=== PATIENT | female | born 1975 | race Caucasian/White ===

== ENCOUNTER 2020-01-24 09:24 | Emergency (ER) | payer SELFPAY ==
[2020-01-24 09:28] VITALS: BP 125/67; PULSE 68; RESP 16; TEMP 37; O2SAT 95
--- NOTE | 2020-01-24 09:45 | DI.RAD_ITS ---
EXAM: XR SHOULDER LT COMPLETE 2+V CLINICAL HISTORY: pain x 2 day, lateral aspect. TECHNIQUE: 2D digital imaging was performed. COMPARISON: No exams were available for comparison FINDINGS: BONES: No acute fracture is present. No bony destructive lesion is seen. JOINTS: No dislocation present. There is minimal spurring at the glenoid and minimal inferior spurrin g at the AC joint. SOFT TISSUE: A tiny rounded calcification is seen near the greater tuberosity. IMPRESSION: Mild degenerative changes and calcific tendinosis.. DATA REPOSITORY: RADIATION DOSE DELIVERED:
--- NOTE | 2020-01-24 09:49 | W.ED.GENAD ---
Discharge Plan Disposition Patient Disposition: HOME Discharge Details Chief Complaint: Orthopedic Clinical Impression: Calcific tendinitis of left shoulder Primary Care Provider: None,None ED Provider: Heriberto Ballesteros Home Meds and New Rx's Prescriptions: Continued ipratropium-albuterol 3 ML solution for nebulization 3 ml Inhalation QID PRNQty: 30 RF: 5 (DME) nebulizers [Compact Compressor Nebulizer] 1 EACH kit 1 ea Miscellaneous Q4H PRN Qty: 1 RF: 0 triamcinolone acetonide 15 GM cream 15 gm Topical BID Qty: 1 RF: 0 albuterol sulfate [ProAir HFA] 90 mcg/actuation HFA aerosol inhaler 2 puff Inhalation Q6H PRN Qty: 1 RF: 5 Discharge Instructions Instructions: Tendinitis (ED) Additional Instructions: Wear sling as needed, advance activity as tolerated. [id number] Motrin as directed. Cool and/or warm compresses every 2 hours for 20 minutes. Be sure to do passive range of motion like we discussed at least 4 times daily to avoid a frozen shoulder. Please watch for new or worsening symptoms and return to the ER for any concerns. I have given you the name and number of our local orthopedic team, I recommend contacting their office for prompt outpatient reevaluation in the next week or 2 if symptoms are not improving with conservative therapy Referrals: Evan Terry MD [ [facility] STAFF PHYSICIAN] - Discharge Data Discharge Date/Time-TO BE ENTERED AT DEPARTURE: 01/24/20 11:03 Medical Decision Making <ROMULO Kim - Last Filed: 01/24/20 10:49> 44-year-old female presents with 2-day history of worsening left shoulder pain, nonradiating. She is right-hand dominant. Examination reveals point tenderness over the lateral aspect of the shoulder, concerning for potential bursitis or tendinitis. No evidence of septic joint. Given this is atraumatic, low suspicion for bony abnormality. Discussed options, patient comfortable with the pending x-ray now X-ray obtained, no acute bony abnormality. Findings consistent with a calcific tendinitis Discussed x-ray findings with patient. Sling applied. We discussed passive range of motion to avoid a frozen shoulder, anti-inflammatory therapy [id number], cool and/or warm compresses as tolerated, and outpatient orthopedic follow-up. Patient comfortable this plan has no additional questions or concerns Case discussed with Dr. Cohen who evaluated the patient himself. Please see his note Medical Records Medical records reviewed: Yes I reviewed the patient's medical records. Imaging Data Radiologic Study: Attestation: I personally reviewed and interpreted this imaging study as follows: Imaging: X-Ray Radiologist's impression: Mild degenerative changes and calcific tendinosis <Maxime Cohen MD - Last Filed: 01/25/20 19:07> Patient seen, examined, and discussed with ROMULO Ballesteros. I agree with treatment plan as discussed/documented. HPI <ROMULO Kim - Last Filed: 01/24/20 10:49> General Mode of arrival: ambulatory. Date/Time Provider Initiated Documentation: 01/24/20 09:25. Limitations to Documentation: no limitations. Information obtained by: patient. HPI Narrative: This is a 44-year-old female who is right-hand dominant, history of GERD, hyperlipidemia, asthma, current smoker, presenting with 2-day worsening left shoulder pain. She reports the pain is moderate at rest, severe with movement. She reports that the pain began yesterday morning upon waking however has progressively gotten worse. She denies any numbness, tingling, weakness. She denies any chest pain, productive cough, back pain. Reports mild dry baseline cough secondary to smoking and asthma but unchanged. She denies any obvious trauma 2 days ago, admits to folding laundry but nothing out of the ordinary. Denies any history of shoulder issues. She has taken Tylenol with out relief.. Denies any pain or swelling in her legs. Of note, she did return from [place] little over 2 weeks ago, did self quarantining, was tested for COVID both pre-and post move, both negative. Related Data Home Medications Medication Instructions Recorded Confirmed ipratropium-albuterol 3 ml INHALATION QID PRN #30 amp 12/26/15 01/24/20 nebulizers [Compact Compressor #1 kit 12/26/15 Nebulizer] triamcinolone acetonide 15 gm TOPICAL BID #1 script 01/04/18 01/24/20 albuterol sulfate 90 mcg/actuation 2 puff INHALATION Q6H PRN #1 ea 12/19/18 01/24/20 aerosol inhaler Previous Rx's Medication Instructions Recorded triamcinolone acetonide 15 gm TOPICAL BID #1 script 01/04/18 albuterol sulfate 90 mcg/actuation 2 puff INHALATION Q6H PRN #1 ea 12/19/18 aerosol inhaler Allergies Allergy/AdvReac Type Severity Reaction Status Date / Time Sulfa (Sulfonamide Allergy Intermediate HIVES Unverified 01/24/20 09:40 Antibiotics) tramadol AdvReac Severe DIARRHEA Unverified 01/24/20 09:40 indomethacin AdvReac Intermediate vomiting/di Unverified 01/24/20 09:40 arrhea morphine AdvReac Mild LOCAL Unverified 01/24/20 09:40 ITCHING General Stated Complaint: Orthopedic GAUTAM: 4 Review of Systems <ROMULO Kim - Last Filed: 01/24/20 10:49> Constitutional Constitutional: Denies fever(s) and Denies weakness Cardiovascular Cardiovascular: Denies chest pain and Denies dyspnea Respiratory Respiratory: Reports cough (Baseline) and Denies dyspnea Gastrointestinal Gastrointestinal: Denies abdominal pain, Denies nausea and Denies vomiting Musculoskeletal Musculoskeletal: Denies back pain, Denies numbness and Denies tingling Integumentary/Breasts Skin/Breast: Denies rash Neurologic Neurologic: Denies numbness, Denies tingling and Denies weakness PFS <ROMULO Kim - Last Filed: 01/24/20 10:49> Medical History Atopic dermatitis (Inactive 11/11/17) Cigarette smoker (Chronic) Dysfunctional uterine bleeding (Resolved 07/28/98) S/p JADEN and bilateral oophrectomy Dysplasia of cervix (Resolved 07/28/95) BRUCE 3; S/P LEEP; CONE GERD (gastroesophageal reflux disease) (Resolved) Hyperlipidemia (Chronic) Moderate persistent asthma (Chronic) Surgical History Appendectomy History of appendectomy (Inactive) History of left oophorectomy (Inactive) History of right oophorectomy (Inactive) Hysterectomy, Laproscopic Knee Surgery Oophrectomy, Left (~2004) ovarian cysts Oophrectomy, Right (~1998) Status post laparoscopic hysterectomy (Inactive) Family History Mother Essential hypertension DVT (deep venous thrombosis) Heart disease Asthma Family history Diabetes Father Asthma Grandfather Essential hypertension Neoplasm PROSTATE Grandmother Essential hypertension Heart disease Neoplasm BREAST Sister No problems noted. Daughter Asthma Other Depression Social History Smoking/Tobacco Use Status: Current every day Alcohol Intake: never Drug use: Never Do you feel safe at home: Yes Do you feel safe in your relationship?: Yes Exam <ROMULO Kim - Last Filed: 01/24/20 10:49> Const General: cooperative, healthy appearing, comfortable and no acute distress Orientation: alert, awake and oriented x3 HENMT Head: normal to inspection, normocephalic and atraumatic Mouth: moist mucous membranes Eyes Conjunctivae: conjunctivae normal Neck Neck: normal visual inspection, full ROM, trachea midline, supple and nontender Resp Effort & Inspection: normal respiratory effort and able to speak in complete sentences Auscultation: clear to auscultation bilaterally Cardio Rate: regular rate Rhythm: regular rhythm Back/Spine/Pelvis Back: No back tenderness Skin General skin exam: no rashes or lesions noted Neuro General: patient alert, patient awake, moves all extremities and no focal motor deficits Motor: muscle tone normal throughout Sensory Exam: no sensory deficits noted Extrem Left upper extremity: normal to inspection and shoulder/upper arm Details: inspection abnormal, tenderness Location: over the deltoid bursa, axillary nerve sensory function normal and abnormal ROM Details: held in an abnormal fashion Details: in ADduction, pain with active ROM and pain with passive ROM; no swelling and no unsual warmth Psych Appearance: grossly normal Mental Status: mental status grossly normal Course <ROMULO Kim - Last Filed: 01/24/20 10:49> Vital Signs Vital signs: Vital Signs Temperature 37.0 C 01/24/20 09:28 Pulse 68 01/24/20 09:28 Respiratory Rate 16 01/24/20 09:28 Blood Pressure 125/67 01/24/20 09:28 Pulse Oximetry 95 01/24/20 09:28 Temperature 37.0 C 01/24/20 09:28 Temperature Source Skin 01/24/20 09:28 Pulse 68 01/24/20 09:28 Respiratory Rate 16 01/24/20 09:28 Respiratory Effort 01/24/20 09:38 Blood Pressure 125/67 01/24/20 09:28 Blood Pressure Position Sitting 01/24/20 09:28 Pulse Oximetry 95 01/24/20 09:28 Oxygen Delivery Method Room Air 01/24/20 09:28 Oxygen Flow Rate 0 01/24/20 09:28 Pain Level 10 01/24/20 09:28
== END 2020-01-24 11:03 | disposition home or self-care (01) ==
PROVIDERS: Emergency Provider Physician Assistant
DX: M75.32 Calcific tendinitis of left shoulder (principal)
CPT/HCPCS: 99283; 73030; L3650

== ENCOUNTER 2020-02-15 07:10 | Emergency (ER) | payer SELFPAY ==
[2020-02-15 07:15] VITALS: BP 130/67; PULSE 118; RESP 20; TEMP 37.3; O2SAT 98
[2020-02-15 07:28] LABS: Bilirubin Negative (Negative); Blood Moderate (Negative); Clarity Sl Cloudy (Clear); Glucose Negative (Negative); Ketones Negative (Negative); Leukocyte Esterase Trace (Negative); Nitrite Negative (Negative); Urobilinogen 0.2 EU/dL (Up TO 0.2); pH 6.5 (5-8)
--- NOTE | 2020-02-15 07:34 | W.ED.GENAD ---
Discharge Plan Disposition Patient Disposition: HOME Condition: Stable Discharge Details Chief Complaint: Fever Clinical Impression: Pyelonephritis Primary Care Provider: None,None ED Provider: Ethan Kim Home Meds and New Rx's Prescriptions: New cephalexin 500 mg tablet 500 mg PO QID Qty: 28 RF: 0 ondansetron 4 mg tablet,disintegrating 4 mg PO Q8H PRN (Reason: nausea and vomiting) Qty: 30 RF: 0 oxycodone 5 mg tablet 5 mg PO Q6H PRN (Reason: pain) Qty: 12 RF: 0 Continued ipratropium-albuterol 3 ML solution for nebulization 3 ml Inhalation QID PRNQty: 30 RF: 5 (DME) Compact Compressor Nebulizer 1 EACH kit 1 ea Miscellaneous Q4H PRN Qty: 1 RF: 0 triamcinolone acetonide 15 GM cream 15 gm Topical BID Qty: 1 RF: 0 albuterol sulfate [ProAir HFA] 90 mcg/actuation HFA aerosol inhaler 2 puff Inhalation Q6H PRN Qty: 1 RF: 5 Discharge Instructions Instructions: Kidney Infection (ED) Additional Instructions: you can take 1000mg tylenol and 600mg ibuprofen every 6 hours for pain as needed if you need more pain medicine take 1 oxycodone do not drink alcohol or drive if you take this medicine if you feel more ill, have persistent vomit or new symptoms such as difficulty breathing return to the emergency department Discharge Data Discharge Date/Time-TO BE ENTERED AT DEPARTURE: 02/15/20 09:46 Medical Decision Making <Jc Samaniego MD - Last Filed: 02/19/20 20:34> Patient presenting with complaint of bilateral flank pain with associated urinary symptoms, fever and now nausea/vomiting. Previous history of kidney infections but not kidney stones. Looks uncomfortable but nontoxic. Not febrile here but tachycardic. IV established and fluids, Toradol, Zofran ordered. Urinalysis and blood work ordered. Stone study ordered because she looks so uncomfortable and urine getting positive for blood but only trace leuks. Ceftriaxone ordered. <Ethan Kim MD - Last Filed: 02/15/20 08:59> Labs show wbc of 18 and UA consistent with uti/pyelo otherwise stable labs and she remains hd stable feels much better and is tolerating PO. CT shows no obstructing kidney stone per Dr. horner. She is stable and would like to try outpatient management. Will d/c on cephalexin. Return precautions given . Will also place on follow uplist to see a pcp within a week Differential Diagnosis Differential Diagnosis: kidney stone, pyelo, uti Imaging Data Radiologic Study: Attestation: I personally reviewed and interpreted this imaging study as follows: Imaging: CT Scan Radiologist's impression: left hydro with stranding, no obstructing kidney stones per Dr. horner Lab Data Lab results reviewed: Yes I reviewed the patient's lab results. HPI <Jc Samaniego MD - Last Filed: 02/19/20 20:34> General Mode of arrival: ambulatory. Date/Time Provider Initiated Documentation: 02/15/20 07:14. Limitations to Documentation: no limitations. Information obtained by: patient and RN notes reviewed. HPI Narrative: Patient presents to the ED with bilateral flank/back pain, urinary symptoms, fever that started a little over 24 hours ago. She now has nausea and vomiting. She has had kidney infections previously. She has not had kidney stones. She denies chest pain, cough, shortness of breath. She denies abdominal pain. She has been admitted once in the past for kidney infection. She is quite uncomfortable and presents now for evaluation. Related Data Home Medications Medication Instructions Recorded Confirmed Compact Compressor Nebulizer #1 kit 12/26/15 02/15/20 ipratropium-albuterol 3 ml INHALATION QID PRN #30 amp 12/26/15 02/15/20 triamcinolone acetonide 15 gm TOPICAL BID #1 script 01/04/18 02/15/20 albuterol sulfate 90 mcg/actuation 2 puff INHALATION Q6H PRN #1 ea 12/19/18 02/15/20 aerosol inhaler cephalexin 500 mg PO QID #28 tab 02/15/20 ondansetron 4 mg PO Q8H PRN #30 tab 02/15/20 oxycodone 5 mg PO Q6H PRN #12 tab 02/15/20 Previous Rx's Medication Instructions Recorded triamcinolone acetonide 15 gm TOPICAL BID #1 script 01/04/18 albuterol sulfate 90 mcg/actuation 2 puff INHALATION Q6H PRN #1 ea 12/19/18 aerosol inhaler cephalexin 500 mg PO QID #28 tab 02/15/20 ondansetron 4 mg PO Q8H PRN #30 tab 02/15/20 oxycodone 5 mg PO Q6H PRN #12 tab 02/15/20 Allergies Allergy/AdvReac Type Severity Reaction Status Date / Time Sulfa (Sulfonamide Allergy Intermediate HIVES Unverified 02/15/20 07:36 Antibiotics) tramadol AdvReac Severe DIARRHEA Unverified 02/15/20 07:36 indomethacin AdvReac Intermediate vomiting/di Unverified 02/15/20 07:36 arrhea morphine AdvReac Mild LOCAL Unverified 02/15/20 07:36 ITCHING General Stated Complaint: Fever GAUTAM: 3 Review of Systems <Jc Samaniego MD - Last Filed: 02/19/20 20:34> Narrative: 06/11 Review of Systems completed and is negative except as stated above in HPI (Systems reviewed: Const, Eyes, ENT, Resp, CV, GI, , MSK, Skin, Neuro) PFSH <Jc Samaniego MD - Last Filed: 02/19/20 20:34> Medical History (Updated 02/15/20 @ 08:56 by Ethan Kim MD) Atopic dermatitis (Inactive 11/11/17) Cigarette smoker (Chronic) Dysfunctional uterine bleeding (Resolved 07/28/98) S/p JADEN and bilateral oophrectomy Dysplasia of cervix (Resolved 07/28/95) BRUCE 3; S/P LEEP; CONE GERD (gastroesophageal reflux disease) (Resolved) Hyperlipidemia (Chronic) Moderate persistent asthma (Chronic) Surgical History History of appendectomy (Inactive) History of left oophorectomy (Inactive) History of right oophorectomy (Inactive) Knee Surgery Status post laparoscopic hysterectomy (Inactive) Social History Smoking/Tobacco Use Status: Current every day Alcohol Intake: never Drug use: Never Do you feel safe at home: Yes Do you feel safe in your relationship?: Yes Exam <Jc Samaniego MD - Last Filed: 02/19/20 20:34> Narrative Exam Narrative: Vitals: Afebrile here. Tachycardic. Normal blood pressure and room air pulse ox. Const: Obese female appears uncomfortable. HEENT: NC/AT. Normal facial exam. Eyes: Normal conjunctiva and sclera. Neck: Supple. Trachea midline. Lungs: Normal respiratory effort. Cor: Good radial pulses. GI: Soft. NT/ND. No guarding or rebound. Back: B CVAT Neuro: A+O x 3. Normal speech, mentation, gait. Cranial nerves II - XII grossly intact. No gross motor or sensory deficit. Ext: No C/C/E. Skin: Warm and dry without rash. Course <Jc Samaniego MD - Last Filed: 02/19/20 20:34> Vital Signs Vital signs: Vital Signs Temperature 99.1 F 02/15/20 07:15 Pulse 118 H 02/15/20 07:15 Respiratory Rate 20 02/15/20 07:15 Blood Pressure 130/67 02/15/20 07:15 Pulse Oximetry 98 02/15/20 07:15 Temperature 99.1 F 02/15/20 07:15 Temperature Source Skin 02/15/20 07:15 Pulse 118 H 02/15/20 07:15 Respiratory Rate 20 02/15/20 07:15 Blood Pressure 130/67 02/15/20 07:15 Blood Pressure Position Sitting 02/15/20 07:15 Pulse Oximetry 98 02/15/20 07:15 Oxygen Delivery Method Room Air 02/15/20 07:15 Oxygen Flow Rate 0 02/15/20 07:15 Pain Level 9 02/15/20 07:15 Comment 02/15/20 07:15 Lab/Test Results Lab/Test Results: Laboratory Tests Range/Units 02/15/20 07:20 Urine Color (Yellow) Yellow Urine Clarity (Clear) Sl cloudy Urine pH (5-8) 6.5 Ur Specific [place] (1.005-1.025) 1.020 Urine Protein (Negative) mg/dL 100 H Urine Ketones (Negative) mg/dL Negative Urine Blood (Negative) Moderate H Urine Nitrite (Negative) Negative Urine Bilirubin (Negative) Negative Urine Urobilinogen (Up TO 0.2) EU/dL 0.2 Ur Leukocyte Esterase (Negative) Trace H Urine Glucose (Negative) mg/dL Negative Sign Out <Jc Samaniego MD - Last Filed: 02/19/20 20:34> Sign Out Data: Sign Out Comment: Pending labs and CT scan, reevaluation after fluids and medications Last updated by Jc Samaniego MD at 02/15/20 07:46
[2020-02-15 07:37] LABS: Lactate 0.9 mmol/L (0.6-1.4)
[2020-02-15 07:38] LABS: Abs Immature Grans 0.04 k/cumm (0.0-0.09); Absolute Basophil Count 0.04 k/cumm (0.0-0.2); Absolute Eosinophil Count 0.04 k/cumm (0.0-0.7); Absolute Lymphocyte Count 1.81 k/cumm (1.2-3.4); Basophils % 0.2; Eosinophils % 0.2; HGB 15.2 g/dL (12.0-15.5); Immature Grans % 0.2 %; Lymphocytes % 9.9; Mean Corp. HGB Concentration 33.8 g/dL (32.0-36.0); Mean Corpuscular Hemoglobin 30.5 pg (27.0-33.0); Mean Corpuscular Volume 90.2 fL (80-95); Mean Platelet Volume 11.6 fL (8.0-11.0); Monocytes % 5.5; Platelet Count 172 x1000/uL (130-400); RBC 4.99 m/cumm (4.00-5.20); RBC Distribution Width 13.6 % (11.7-14.6); White Blood Cell Count 18.26 k/cumm (4.4-10.8)
[2020-02-15 07:40] LABS: Bacteria Moderate HPF (Negative); C & S Indicated? No/Sq. Contamination; Casts Negative LPF (Negative); Crystals Negative HPF (Negative); Epithelial Cells Many HPF (Negative); Mucus Moderate (Negative)
[2020-02-15 07:42] LABS: Absolute Neutrophil Count 15.34 k/cumm (1.2-6.7)
[2020-02-15] MEDS: Ondansetron 4 MG/2 ML VIAL IVP (07:43)
[2020-02-15] MEDS: Lactated Ringers 1,000 ML 1000 ML IV (07:43)
[2020-02-15] MEDS: Ketorolac 30 MG/ML VIAL IVP (07:44)
[2020-02-15] MEDS: Normal Saline Flush 10 ML SYR IVP ×2 (07:44→08:44)
[2020-02-15 07:49] VITALS: TEMP 39.4
--- NOTE | 2020-02-15 08:00 | DI.CT_ITS ---
EXAM: CT RENAL COLIC WO CLINICAL HISTORY: fever flank pain. TECHNIQUE: Imaging Protocol: Axial computed tomography images with coronal and sagittal reformatted images were created and reviewed. CONTRAST MATERIAL: Noncontrast COMPARISON: No May 14 FINDINGS: ABDOMEN: Lung Bases: Normal where visualized. Liver: The liver is mildly enlarged and shows fatty infiltration.. No measurable mass. Gallbladder and biliary tract: No radiodense calculus or dilation. Pancreas: Normal density, no abnormal calcifications or inflammatory process. Spleen: Normal. Kidneys: There is stranding around the left kidney. The left ureter is mildly dilated. No obstructi ng stone is visible. The urinary bladder is nearly empty. Phleboliths are seen in the low pelvis. No renal or calculi are seen. There are bilateral renal cysts. Adrenal glands: No masses seen. Abdominal Aorta: Abdominal portion non-dilated. PELVIS: Bladder: No stones or gross wall thickening. Bowel: No obstruction or bowel wall thickening. Peritoneal cavity: No ascites, collection or mesenteric inflammatory response. Bones: Within normal limits. The patient is status hysterectomy. IMPRESSION: Mild left perinephric stranding and mild left hydronephrosis may be secondary to a recently passed st one versus pyelonephritis.. No obstructing stone is visible. RADIATION DOSE DELIVERED: 1,093.35mGy.cm Total DLP DATA REPOSITORY: All CT scans at this facility are submitted to the National Radiology Data Registry (NRDR) Dose Index Registry (DIR) with the [employer] (ACR). RADIATION OPTIMIZATION: All CT scans at this facility use at least one of these dose optimization te chniques: automated exposure control; mA and/or kV adjustment per patient size (includes targeted exa ms where dose is matched to clinical indication); or iterative reconstruction.
[2020-02-15 08:09] LABS: Anion Gap 10.4 mmol/L (3-11); BUN 8 mg/dL (7-18); CO2 24.6 mmol/L (21.0-32.0); Calcium 8.8 mg/dL (8.5-10.1); Chloride 102 mmol/L (98-107); Estimated GFR 54.47 (mL/min/1.73m2); Glucose 105 mg/dL (74-106); Potassium 3.7 mmol/L (3.5-5.1); Sodium 137 mmol/L (136-145)
[2020-02-15] MEDS: HYDROmorphone 2 MG/ML VIAL 1 MG IVP (08:20)
[2020-02-15] MEDS: Normal Saline 50 ML 200 ML (08:21)
[2020-02-15] MEDS: cefTRIAXone 1 GM/50 ML BAG IVPB (08:44)
--- NOTE | 2020-02-15 08:59 | NUR.NOTE ---
REFERRED TO CM FOR ESTABLISHING PCP AND FOLLOW UP ON ARTHRITIS Nursing Note:
[2020-02-15 09:39] VITALS: BP 103/64; PULSE 75; RESP 18; TEMP 37.1; O2SAT 96
--- NOTE | 2020-02-21 09:53 | CMPROGNOTE_ITS ---
- If Service Date Differs Date of service: 02/21/20 Time of Service: 09:53 Care Management Progress Note Juany is seen in the ED on 02/15/20 for pyelonephritis. She is instructed to follow-up with her PCP within a week of the ED visit. Juany, however, does not have a local PCP, so CM is asked by ED provider to coordinate a referral to assist Juany in establishing care locally. A review of her medical chart reveals that she previously was seen by LUCAS Vogel, of [facility], but has not been seen in over a year. CM makes several attempts at contacting Juany by telephone to inquire if she is amenable to re-establishing care at [facility], but thus far CM has been unsuccessful at reaching Juany, despite leaving several messages in her voice mailbox asking for a returned phone call.
== END 2020-02-15 09:46 | disposition home or self-care (01) ==
PROVIDERS: Emergency Medicine; Emergency Provider Emergency Medicine
DX: N10 Acute pyelonephritis (principal); R11.2 Nausea with vomiting, unspecified; Z87.440 Personal history of urinary (tract) infections
CPT/HCPCS: 36415; 80048; 87077; 96361; 96365; 96375; 99284; 74176; 81003; 81015; 83605; 85025; 87086; 87186; 99285; J0696; J1885; J2405

== ENCOUNTER 2020-07-07 09:29 | Day surgery (SDC) | payer MEDICAID, SELFPAY ==
[2020-07-07 09:40] VITALS: BP 116/64; PULSE 72; RESP 16; TEMP 36.2; O2SAT 99
--- NOTE | 2020-07-07 11:29 | NUR.NOTE ---
1130 pt's case cancelled do to situation evolving in OR and unavailability of surgeon.Nursing Note:
== END 2020-07-07 09:49 ==
PROVIDERS: PCP Nurse Practitioner Family; Visit Provider Orthopaedic Surgery
DX: Z53.9 Procedure and treatment not carried out, unspecified reason (principal)

== ENCOUNTER 2020-07-11 09:25 | Day surgery (SDC) | payer MEDICAID, SELFPAY ==
[2020-07-11 09:48] VITALS: BP 109/64; PULSE 81; RESP 18; TEMP 36.1; O2SAT 98
[2020-07-11] MEDS: Lidocaine 2% Multi-Dose 50 ML VIAL (10:06)
[2020-07-11] MEDS: Bupivacaine 0.5% Pres-Free 30 ML VIAL (10:16)
--- NOTE | 2020-07-11 10:24 | PDOC.DSDIS_ITS ---
Discharge Plan Disposition Patient Disposition: HOME Condition: Good Discharge Details Reason For Visit: R TRIGGER THUMB RELEASE Attending Provider: Rick Rodriguez Primary Care Provider: Chrissy Smapson Home Meds and New Rx's Prescriptions: New ibuprofen 600 mg tablet 600 mg PO Q6H PRNQty: 14 RF: 0 Continued montelukast [Singulair] 10 mg tablet 10 mg PO QHS Qty: 30 RF: 0 albuterol sulfate [ProAir HFA] 90 mcg/actuation HFA aerosol inhaler 2 puff inhalation Q6H PRN (Reason: shortness of breath or wheezing) Qty: 8.5 RF: 0 triamcinolone acetonide 15 GM cream 15 gm Topical BID Qty: 1 RF: 0 albuterol sulfate [ProAir HFA] 90 mcg/actuation HFA aerosol inhaler 2 puff Inhalation Q6H PRN Qty: 1 RF: 5 Discharge Instructions Additional Instructions: Keep dressings dry for 48 hours. Bend and straighten R thumb 10 times/hr when awake to decrease stiffness and swelling. Remove dressings, shower or bathe and get incision wet after 48 hours. After 48 hours, leave incision uncovered when it is dry and sealed. Take ibuprofen 600mg as prescribed for pain, if needed. Follow up with on 07/23 for suture removal. May use R hand as much as your discomfort allows. Referrals: Rick Rodriguez MD [ [facility] STAFF PHYSICIAN] - (f/u on Tue07/23/20) Activity:: Activity as Tolerated Remove Dressings/Wound Care:: 48 hours Shower/Bathe:: 48 hours Diet:: As Tolerated Discharge Orders Discharge Orders: Discharge Order (Routine); Ordered 07/11/20 Ordered By: Rick Rodriguez DS: Diagnosis Discharge Diagnosis (1) Trigger finger of right thumb: Status: Acute
--- NOTE | 2020-07-12 10:25 | W.PM.OP ---
Date of service: 07/11/20 Time of Service: 10:25 Operative Note Operative Note DATE OF PROCEDURE: 07/11/20 PRE-OP DIAGNOSIS: Right trigger thumb POST-OP DIAGNOSIS: same PROCEDURE: Tendon sheath incision right thumb for trigger thumb release SURGEON: Rick Rodriguez ANESTHESIA: local COMPLICATIONS: None Patient was transported to: same day Patient's condition: stable Indications: Is a 45-year-old white female with a 1 year history of trigger right thumb. She was avoiding flexion of her thumb so much because of pain that she now cannot flex her thumb. She has limited active flexion of the thumb IP joint. She is extremely tender over the proximal ashley of the right thumb. Flexor tendon sheath incision was recommended to restore useful motion to the right thumb and alleviate any pain. The risk on case of procedure explained patient detail preop. Procedure Description: Patient was taken the operating room on 07/11/2020 and placed supine operative table. The right hand was prepped and draped free in the usual sterile fashion. I infiltrated over the proximal flexion crease of the right thumb with 2% Xylocaine solution. Incision was made in line with the proximal flexion crease of the thumb centered over the flexor tendon. The incision was about 3 cm. Incision was carried down just to the subcutaneous fat. Blunt tipped Littler scissors were then used to mobilize the digital nerves away from the flexor sheath of the right thumb. Once I could visualize the flexor sheath clearly, I made an incision in the midline with a 15 blade scalpel. I then used Littler scissors to extend the incision proximally and distally the entire length of the proximal ashley of the flexor tendon sheath. The patient was not asked at this point to actively flex and extend her right thumb. She can now flex and extend her right thumb fully without any locking or catching. Wounds irrigated with saline solution. The wound margins were infiltrated with point 5% Marcaine solution. Skin edges were approximated with three 4-0 nylon sutures. Direct pressure curtailed any bleeding. Incision was dressed with Xeroform gauze sterile gauze 4 x 4's and wrapped with a 2 inch Gustavo bandage. Patient tolerated procedure well was discharged to the surge unit in good condition. Patient was discharged home from day surgery unit with instructions to keep her dressings dry and intact for 48 hours. She is encouraged to flex and extend her right thumb 10 times an hour while awake to prevent stiffness and swelling. She will take Tylenol or ibuprofen for pain. She may remove the dressings after 48 hours shower bathing get her incision wet. She can leave the dressings off when her wound is dry and sealed. She should follow-up with Dr. Rodriguez on 07/23/2020 for suture removal. She may use her right hand is much as discomfort allows.
== END 2020-07-11 10:47 | disposition home or self-care (01) ==
PROVIDERS: PCP Nurse Practitioner Family; Visit Provider Orthopaedic Surgery
PROC: 0LN70ZZ Release Right Hand Tendon, Open Approach (ICD-10-PCS; CPT 26055; principal; 2020-07-11 10:30)
DX: M65.311 Trigger thumb, right thumb (principal)
CPT/HCPCS: 26055

== ENCOUNTER 2020-09-09 01:29 | Outpatient (CLI) | payer MEDICAID, SELFPAY ==
--- NOTE | 2020-09-09 09:15 | DI.MAMMO_ITS ---
EXAM: MG MAMMO SCREENING CLINICAL HISTORY: screening Z12.39. TECHNIQUE: Bilateral full field digital CC and MLO mammographic images were obtained with 3D tomosyn thesis and utilizing computer aided detection (CAD). COMPARISON: Prior mammograms from the state [facility] are apparently not available FINDINGS: There are no CAD designations There are no spiculated masses nor malignant appearing microcalcification groups. Asymmetric tissue a nteriorly in the left breast has benign appearance. There is no significant architectural distortion nor skin thickening-retraction. IMPRESSION: No radiographic evidence of malignancy. BI-RADS Category 2 - Benign Findings Breast Density - Category B - Scattered areas of fibroglandular density Breast density Category C or D implies that the patient has dense breast tissue. Dense breast tissue can make it harder to find cancer on a mammogram. Dense breast tissue is also associated with an incr eased risk of breast cancer. This information about the result of the mammogram report was provided to the patient to raise their awareness. Use this report when you speak with the patient about their risks for breast cancer, which includes their family history. At that time, you may recommend additional screening tests (Ultrasoun d or MRI) as these tests may add significant information. A negative radiographic report should not delay biopsy if a dominant or clinically suspicious mass is present. Up to ten percent of cancers are not identified on mammography. A negative report may reinforce clinical impression. Adenosis and dense breasts may obscure an underlying neoplasm. False positive reports average 6 to 10%. Patient will receive a letter notifying them of these results.
== END 2020-09-09 01:49 ==
PROVIDERS: PCP Nurse Practitioner Family; Visit Provider Nurse Practitioner Family
DX: Z12.31 Encounter for screening mammogram for malignant neoplasm of breast (principal)
CPT/HCPCS: 77063; 77067

== ENCOUNTER 2020-12-14 20:57 | Emergency (ER) | payer MEDICAID, SELFPAY ==
[2020-12-14] VITALS (13 sets, daily range): BP systolic 107–132; BP diastolic 57–84; PULSE 71–88; RESP 14–21; TEMP 36.5; O2SAT 94–98
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
[2020-12-14 21:32] LABS: Bilirubin Negative (Negative); Blood Negative (Negative); Clarity Sl Cloudy (Clear); Glucose Negative (Negative); Ketones Trace mg/dL (Negative); Leukocyte Esterase Negative (Negative); Nitrite Negative (Negative); Specific Gravity >= 1.030 (1.005-1.025); Urobilinogen 0.2 EU/dL (Up TO 0.2)
[2020-12-14] MEDS: Ketorolac 30 MG/ML VIAL IVP (21:35)
[2020-12-14] MEDS: Normal Saline 1,000 ML 1000 ML IV (21:35)
--- NOTE | 2020-12-14 21:45 | DI.CT_ITS ---
EXAM: CT THORAX ABD/PEL CTA CLINICAL HISTORY: chest pain, left flank pain. TECHNIQUE: Imaging Protocol: Axial computed tomography images with coronal and sagittal reformatted images were created and reviewed CONTRAST MATERIAL: Intravenous: Omnipaque 350 Contrast volume:100 ml Oral: None COMPARISON: CR CHEST 2 VIEWS PA,LAT from 04/01/2015 CR CHEST 2 VIEWS PA,LAT from 07/17/[address] RENAL COLIC WO from 02/15/2020 FINDINGS: CHEST: LUNGS: There are mild subpleural increased markings in the left upper lobe and superior lingular segm ent of the left lung.. No distinct left lung nodules nor pleural effusion.. In the opposite-right lung there is some peribronchial cuffing noted. Benign-appearing increased mar kings are noted in the anterior aspect of the right upper lobe. No significant focal findings in the right lower lobe. There are no pleural effusions. MEDIASTINUM: There is slightly enlarged lymph nodes in both hilar regions as well as in the mediastin um including the subcarinal region and left anterior mediastinal fat adjacent to the aortic arch. Th ere is no axillary adenopathy. There is no supraclavicular adenopathy. CARDIAC: Heart size is normal. There is no pericardial effusion. AORTA: Caliber of the thoracic aorta is within normal limits.There is no evidence of aortic dissectio n. There is no evidence of abdominal aortic aneurysm nor dissection.There is no aneurysmal dilatation of the common iliac arteries.The celiac and superior mesenteric arteries are patent.Right renal artery is patent without significant stenosis. Left renal artery is a narrower vessel than the right but wi thout an obvious focal stenosis nor fibromuscular dysplasia. Some scarring of the left kidney is aga in noted. Aortoiliac segments as well as the femoral arteries are nicely patent. No stenosis. No d issection. ABDOMEN: There is no ascites. LIVER: There are no focal hepatic lesions nor dilatation of intrahepatic ducts. GALLBLADDER/BILIARY: No obvious gallbladder pathology. CBD is not dilated. PANCREAS: No evidence of pancreatic mass nor dilatation of the pancreatic duct. SPLEEN: Spleen is not enlarged. There are no intrasplenic lesions. ADRENALS: There are no significant adrenal masses. KIDNEYS: There is a 4 cm diameter cyst in the anterior cortex of the right kidney which was evident o n the January 2020 CT scan. No solid lesions seen in either kidney. Left kidney is slightly atrophic a nd there is significant cortical thinning laterally in the left kidney again noted. There is present ly no perinephric streaking around the left kidney, as was evident on the January 2020 study. No calcul i nor hydronephrosis. No solid renal masses. ABDOMINAL AORTA: The abdominal aorta is not enlarged. LYMPH NODES: There is no retroperitoneal nor para-aortic adenopathy. No obvious mesenteric masses. ABDOMINAL WALL/GI: No evidence of significant anterior abdominal wall hernia. No bowel obstruction. PELVIS: LYMPH NODES: There is no intrapelvic nor inguinal adenopathy. GI: The appendix is surgically absent.No evidence of sigmoid diverticulitis. URINARY BLADDER: No calculi nor masses evident REPRODUCTIVE: The uterus is surgically absent. There are no abnormal adnexal masses nor free fluid i n the pelvis. OSSEOUS: No significant osseous lesions. IMPRESSION: 1. There is significant intrathoracic adenopathy. There is slightly enlarged lymph nodes in both hil ar regions. There is adenopathy in the subcarinal region and there are also abnormally enlarged lymp h nodes in the anterior left anterior mediastinal fat adjacent to the aortic arch. 2. There are mild increased markings in both lungs as described above but no ominous pulmonary nodul es evident and there are no pleural effusions evident. No pericardial effusion. 3. Slightly atrophic left kidney which exhibits cortical thinning, similar to the previous study. Ho wever, the previously present perinephric streaking around the left kidney is no longer seen. This m ay have been related to a previously passed left-sided calculus. 4. There is a 4 centimeter benign cyst in the right kidney again noted. No solid renal masses. 5. There has been prior appendectomy hysterectomy. There is no bowel obstruction nor abscess. No a scites RADIATION DOSE DELIVERED: 1,090.46mGy.cm Total DLP DATA REPOSITORY: All CT scans at this facility are submitted to the National Radiology Data Registry (NRDR) Dose Index Registry (DIR) with the [employer] (ACR). RADIATION OPTIMIZATION: All CT scans at this facility use at least one of these dose optimization te chniques: automated exposure control; mA and/or kV adjustment per patient size (includes targeted exa ms where dose is matched to clinical indication); or iterative reconstruction.
--- NOTE | 2020-12-14 21:45 | RT.EKG_ITS ---
APPROVED REPORT Exam: Resting ECG Patient Location: E HR:86 bpm ECG Measurements Heart Rate 86 AXIS MN 138 P 55 QRSd 82 QRS 47 QT 369 T 14 QTc 442 Conclusion Sinus rhythm...normal P axis, V-rate 60- 99 I have reviewed and interpreted ECG and agree with software generated interpretation. Normal Electrocardiogram
[2020-12-14 22:08] LABS: Abs Immature Grans 0.08 10^3/uL (0.0-0.06); Absolute Basophil Count 0.07 10^3/uL (0.0-0.2); Absolute Eosinophil Count 0.36 10^3/uL (0.0-0.7); Absolute Monocyte Count 0.86 10^3/uL (0.1-0.8); Basophils % 0.4; Eosinophils % 1.9; HCT 42.9 % (36.0-46.0); HGB 14.3 g/dL (11.2-15.7); Immature Grans % 0.4; MCH 30.4 pg (27.0-33.0); MCHC 33.3 % (32.0-36.0); MCV 91.3 fL (80-95); MPV 11.9 fL (8.0-11.0); Monocytes % 4.6; Neutrophils % 60.7; Nucleated RBC 0 %; Platelet Count 229 10^3/uL (130-400); RDW 12.5 % (11.7-14.6); RDW-SD 41.6 fL
[2020-12-14 22:09] LABS: Absolute Lymphocyte Count 5.98 10^3/uL (1.2-3.4); Absolute Neutrophil Count 11.35 10^3/uL (1.2-6.7)
[2020-12-14 22:23] LABS: ALT 23 U/L (14-59); AST 10 U/L (15-37); Albumin 3.4 g/dL (3.4-5.0); Alkaline Phosphatase 85 U/L (46-116); Anion Gap 9.2 mmol/L (3-11); BUN 16 mg/dL (7-18); Bilirubin, Total 0.2 mg/dL (0.2-1.0); CO2 27.8 mmol/L (21.0-32.0); Calcium 9.1 mg/dL (8.5-10.1); Chloride 107 mmol/L (98-107); Glucose 96 mg/dL (74-106); Potassium 3.8 mmol/L (3.5-5.1); Sodium 144 mmol/L (136-145); Total Protein 6.8 g/dL (6.4-8.2)
[2020-12-14 22:25] LABS: Diff Comment Agrees w/ Instrument; RBC Morphology Normal
[2020-12-14 22:27] LABS: Troponin I < 0.05 ng/mL (<0.06)
[2020-12-14] MEDS: Normal Saline - Diluent 50 ML VIAL IV (22:43)
--- NOTE | 2020-12-14 23:17 | DI.VRAD_ITS ---
PROCEDURE INFORMATION: Exam: CTA Chest With Contrast Exam date and time: 12/14/2020 9:55 PM Age: 45 years old Clinical indication: Chest pain; Abdominal pain; Flank; Left lower quadrant (llq); Prior surgery; Surgery type: L oophorectomy, hysterectomy TECHNIQUE: Imaging protocol: Computed tomographic angiography of the chest with contrast. 3D rendering (Not supervised by radiologist): MIP and/or 3D reconstructed images were created by the technologist. COMPARISON: CR CHEST 2 VIEWS PA,LAT 07/17/2015 5:35 PM FINDINGS: Pulmonary arteries: There is no evidence for PE. Aorta: Unremarkable. No aortic aneurysm. No aortic dissection. Lungs: Peribronchial cuffing is present which is nonspecific, and which may reflect acute or chronic bronchial inflammation. Alternatively, this may reflect an element of reactive airways disease. Scattered bilateral pulmonary ground-glass opacities may reflect micro atelectasis related to bronchial wall thickening versus a nonspecific pulmonary infectious process, issa viral infection not excluded. Pleural spaces: Unremarkable. No pneumothorax. No pleural effusion. Heart: Unremarkable. No cardiomegaly. No pericardial effusion. Lymph nodes: Nonspecific small mesenteric lymph nodes are noted. Bones/joints: Unremarkable. No acute fracture. Soft tissues: Unremarkable. IMPRESSION: 1. Nonspecific peribronchial cuffing. 2. Scattered bilateral pulmonary ground-glass opacities may reflect micro atelectasis related to bronchial wall thickening versus a nonspecific pulmonary infectious process, issa viral infection not excluded. PROCEDURE INFORMATION: Exam: CTA Abdomen and Pelvis With Contrast Exam date and time: 12/14/2020 9:55 PM Age: 45 years old Clinical indication: Chest pain; Abdominal pain; Flank; Left lower quadrant (llq); Prior surgery; Surgery type: L oophorectomy, hysterectomy TECHNIQUE: Imaging protocol: Computed tomographic angiography of the abdomen and pelvis with contrast material. 3D rendering (Not supervised by radiologist): MIP and/or 3D reconstructed images were created by the technologist. COMPARISON: CR CHEST 2 VIEWS PA,LAT 07/17/2015 5:35 PM FINDINGS: Aorta: No aortic aneurysm. No aortic dissection. Celiac trunk and mesenteric arteries: No occlusion or significant stenosis. Renal arteries: No occlusion or significant stenosis. Right iliac arteries: No occlusion or significant stenosis. Left iliac arteries: No occlusion or significant stenosis. Liver: No mass. Gallbladder and bile ducts: Unremarkable. No calcified stones. No ductal dilation. Pancreas: Unremarkable. No mass. No ductal dilation. Spleen: Unremarkable. No splenomegaly. Adrenal glands: Unremarkable. No mass. Kidneys and ureters: Lobulated slightly atrophic left kidney incidentally noted Simple right renal cyst measures 4 centimeters Stomach and bowel: Unremarkable. No obstruction. No mucosal thickening. Appendix: The patient is status post appendectomy. Intraperitoneal space: Unremarkable. No free air. No significant fluid collection. Lymph nodes: Unremarkable. No enlarged lymph nodes. Urinary bladder: Unremarkable. No mass. Reproductive: The patient is status post hysterectomy. Bones/joints: No acute fracture. No dislocation. Soft tissues: Unremarkable. IMPRESSION: No acute findings Dictated and Authenticated by: Reilly Anderson MD. Ordering:LEV Amaya MD
[2020-12-15] VITALS (7 sets, daily range): BP systolic 111–135; BP diastolic 40–72; PULSE 65–100; RESP 15–31; O2SAT 97
[2020-12-15 00:20] LABS: COVID-19 PCR Negative (Negative)
== END 2020-12-15 01:30 | disposition home or self-care (01) ==
PROVIDERS: Emergency Provider Student in an Organized Health Care Education/Training Program; PCP Nurse Practitioner Family
DX: J18.8 Other pneumonia, unspecified organism (principal); R30.0 Dysuria; Z87.440 Personal history of urinary (tract) infections; Z03.818 Encounter for observation for suspected exposure to other biological agents ruled out
CPT/HCPCS: 36415; 71275; 74177; 80053; 87635; 93005; 96361; 96374; 99285; 81003; 84484; 85025; 93010; 99284; J1885

== ENCOUNTER 2021-01-07 13:32 | Emergency (ER) | payer MEDICAID, SELFPAY ==
[2021-01-07 13:43] VITALS: BP 118/84; PULSE 92; RESP 22; TEMP 36.8; O2SAT 96
--- NOTE | 2021-01-07 13:45 | DI.RAD_ITS ---
Exam(s) XR KNEE RT 4V AP,LAT,FELICIA,PAT EXAM: XR KNEE RT 4V AP,LAT,FELICIA,PAT CLINICAL HISTORY: trauma, fell forward onto right knee, painful. TECHNIQUE: 2D digital imaging was performed. COMPARISON: No exams were available for comparison FINDINGS: There is no evidence of fracture nor prominent joint effusion. Mild soft tissue swelling is noted an terior to the patella. No obvious degenerative changes nor osseous lesions. Bone density is age-marcin ropriate. IMPRESSION: DATA REPOSITORY: RADIATION DOSE DELIVERED:
[2021-01-07] MEDS: Acetaminophen 325 MG TAB (15:18)
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
== END 2021-01-07 16:02 | disposition home or self-care (01) ==
PROVIDERS: Emergency Provider Student in an Organized Health Care Education/Training Program; PCP Nurse Practitioner Family
DX: S89.81XA Other specified injuries of right lower leg, initial encounter (principal); W01.198A Fall on same level from slipping, tripping and stumbling with subsequent striking against other object, initial encounter; Y99.0 Civilian activity done for income or pay
CPT/HCPCS: 29505; 99283; 73564

== ENCOUNTER 2021-01-31 10:23 | Emergency (ER) | payer MEDICAID, SELFPAY ==
[2021-01-31 10:28] VITALS: BP 122/71; PULSE 95; TEMP 37; O2SAT 97
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
[2021-01-31] MEDS: Acetaminophen 325 MG TAB 650 MG PO (10:49)
[2021-01-31] MEDS: Ibuprofen 600 MG TAB PO (10:50)
== END 2021-01-31 15:53 | disposition home or self-care (01) ==
LOC: ER 11:15
PROVIDERS: Emergency Provider Physician Assistant; PCP Nurse Practitioner Family
DX: J02.8 Acute pharyngitis due to other specified organisms (principal); H92.01 Otalgia, right ear
CPT/HCPCS: 87880; 99282; 87081; 99283

== ENCOUNTER 2021-02-03 02:42 | Outpatient (CLI) | payer OTHER, SELFPAY ==
--- NOTE | 2021-02-03 07:45 | DI.RAD_ITS ---
Exam(s) XR TIB/FIB RT EXAM: XR TIB/FIB RT CLINICAL HISTORY: tibia ecchymosis, r/o fracture,TRAUMATIC INJURY OF KNEE,[id number]. TECHNIQUE: 2D digital imaging was performed. COMPARISON: No exams were available for comparison FINDINGS: BONES: No acute fracture is present. No bony destructive lesion is seen. Visualized portion of knee a nd ankle joints are unremarkable. SOFT TISSUE: Normal. IMPRESSION: Unremarkable radiographs of the right tibia and fibula. DATA REPOSITORY: RADIATION DOSE DELIVERED:
--- NOTE | 2021-02-03 14:52 | DI.MRI_ITS ---
Exam(s) MR LOWER JOINT RT WO EXAM: MR LOWER JOINT RT WO CLINICAL HISTORY: R knee traumatic injury, r/o ACL/PCL/meniscus tear,S89.90XA. TECHNIQUE: Multiplanar multisequence MRI was performed. COMPARISON: CR XR KNEE RT 4V AP,LAT,FELICIA,PAT from 01/07/2021 FINDINGS: BONES: No occult fracture is identified. There is mild edema seen in the subchondral articular surfa ce of the patella. JOINTS: Mild thinning of the articular cartilage overlying the patella. There is a small amount of f luid in the joint space. TENDONS: Extensor mechanism: Unremarkable. Medial retinaculum: Unremarkable. Lateral retinaculum: Unremarkable. Popliteus: Unremarkable. MUSCLES: Unremarkable. MENISCI: The medial meniscus is unremarkable. The lateral meniscus is unremarkable. SOFT TISSUES: There is edema seen in the soft tissues around the knee. LIGAMENTS: Anterior Cruciate: Unremarkable. Posterior Cruciate: Unremarkable. Medial Collateral:Unremarkable. Lateral Collateral: Unremarkable. OTHER: IMPRESSION: 1. No evidence of an occult fracture. 2. No meniscal or ligament tear. 3. Chondromalacia patella. 4. Subcutaneous edema around the knee. DATA REPOSITORY:
== END 2021-02-03 03:02 ==
PROVIDERS: PCP Nurse Practitioner Family; Visit Provider Nurse Practitioner Family
DX: M25.561 Pain in right knee (principal); S89.81XA Other specified injuries of right lower leg, initial encounter; R60.0 Localized edema; M22.41 Chondromalacia patellae, right knee
CPT/HCPCS: 73721; 73590

== ENCOUNTER 2021-08-04 02:55 | Outpatient (CLI) | payer MEDICAID, SELFPAY ==
[2021-08-04 14:43] LABS: Hemoglobin A1C 5.6 % (<5.7)
[2021-08-04 15:57] LABS: Anion Gap 7.7 mmol/L (3-11); BUN 17 mg/dL (7-18); CO2 28.3 mmol/L (21.0-32.0); Calcium 8.8 mg/dL (8.5-10.1); Chloride 106 mmol/L (98-107); FREE T4 1.05 ng/dL (0.76-1.46); Glucose 93 mg/dL (74-106); Potassium 4.2 mmol/L (3.5-5.1); Sodium 142 mmol/L (136-145); TSH 1.36 uIU/mL (0.36-3.74)
[2021-08-04 16:09] LABS: Calculated LDL 112 mg/dL (<100); Cholesterol 210 mg/dL (<200); HDL Cholesterol 53 mg/dL (40-60); Triglyceride 225 mg/dL (<150)
== END 2021-08-04 02:56 | disposition home or self-care (01) ==
LOC: LBO 02:55
PROVIDERS: PCP Nurse Practitioner Family; Visit Provider Nurse Practitioner Family
DX: E78.5 Hyperlipidemia, unspecified (principal)
CPT/HCPCS: 36415; 80048; 80061; 83036; 84439; 84443

== ENCOUNTER 2021-10-16 16:18 | Outpatient (REF) | payer MEDICAID, SELFPAY ==
[2021-10-18 13:40] LABS: COVID-19 RT-PCR UVMMC Result Positive (Negative)
== END 2021-10-16 16:19 | disposition home or self-care (01) ==
LOC: LBN 16:18
PROVIDERS: PCP Nurse Practitioner Family; Visit Provider Nurse Practitioner Family
DX: Z20.822 Contact with and (suspected) exposure to COVID-19 (principal)
CPT/HCPCS: U0003

== ENCOUNTER 2021-10-28 18:05 | Emergency (ER) | payer MEDICAID, SELFPAY ==
[2021-10-28 18:42] VITALS: BP 136/72; PULSE 103; RESP 20; TEMP 37.7; O2SAT 97
[2021-10-28 19:10] VITALS: BP 135/80; PULSE 98; RESP 20; TEMP 37; O2SAT 95
[2021-10-28 19:11] VITALS: RESP 20
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
--- NOTE | 2021-10-28 20:13 | DI.RAD_ITS ---
Exam(s) XR PORTABLE CHEST AP EXAM: XR PORTABLE CHEST AP CLINICAL HISTORY: covd +, fatigue, cough TECHNIQUE: 2D digital imaging was performed. COMPARISON: CR CHEST 2 VIEWS PA,LAT from 07/17/2015 FINDINGS: Exam is limited by patient body habitus and portable technique.. There is question of hazy bilateral infiltrates in the lower lobes.. No focal consolidation or effusion. Heart size normal. IMPRESSION: Question bilateral mild ground-glass opacities. DATA REPOSITORY: RADIATION DOSE DELIVERED:
[2021-10-28] MEDS: Normal Saline 1,000 ML 1000 ML IV (20:14)
[2021-10-28 20:15] LABS: Abs Immature Grans 0.08 10^3/uL (0.0-0.06); Absolute Basophil Count 0.09 10^3/uL (0.0-0.2); Absolute Eosinophil Count 0.27 10^3/uL (0.0-0.7); Absolute Lymphocyte Count 4.89 10^3/uL (1.2-3.4); Absolute Monocyte Count 0.99 10^3/uL (0.1-0.8); Absolute Neutrophil Count 12.01 10^3/uL (1.2-6.7); Basophils % 0.5; Eosinophils % 1.5; HCT 40.7 % (36.0-46.0); HGB 13.3 g/dL (11.2-15.7); Immature Grans % 0.4; Lymphocytes % 26.7; MCH 30.2 pg (27.0-33.0); MCHC 32.7 % (32.0-36.0); MCV 92.3 fL (80-95); MPV 11.9 fL (8.0-11.0); Monocytes % 5.4; Neutrophils % 65.5; Nucleated RBC 0 %; Platelet Count 169 10^3/uL (130-400); RBC 4.41 10^6/uL (3.93-5.22); RDW-SD 44.3 fL; WBC 18.33 10^3/uL (4.4-10.8)
[2021-10-28] MEDS: Dexamethasone 10 MG/ML VIAL IVP (20:20)
--- NOTE | 2021-10-28 20:27 | DI.VRAD_ITS ---
PROCEDURE INFORMATION: Exam: XR Chest Exam date and time: 10/28/2021 7:33 PM Age: 46 years old Clinical indication: Cough TECHNIQUE: Imaging protocol: XR of the chest. Views: 1 view. COMPARISON: CT THORAX ABD/PEL CTA 12/14/2020 10:36 PM FINDINGS: Lungs: Patchy airspace opacity noted in both lungs, right greater than left. No specific consolidation. Pulmonary vessels are not congested. Pleural spaces: Unremarkable. No pleural effusion. No pneumothorax. Heart/Mediastinum: Normal heart size. Unremarkable mediastinal contours. Bones/joints: Unremarkable. IMPRESSION: Multifocal infiltrates and/or edema. Dictated and Authenticated by: Ethan Gonzalez MD. Ordering:DENILSON Dos Santos MD
[2021-10-28 20:33] LABS: ALT 16 U/L (14-59); AST 14 U/L (15-37); Alkaline Phosphatase 73 U/L (46-116); Anion Gap 9.8 mmol/L (3-11); BUN 11 mg/dL (7-18); Bilirubin, Total 0.3 mg/dL (0.2-1.0); CO2 26.2 mmol/L (21.0-32.0); CREATININE 1.1 mg/dL (0.55-1.02); Calcium 8.6 mg/dL (8.5-10.1); Chloride 107 mmol/L (98-107); Estimated GFR 53.96 (mL/min/1.73m2); Glucose 113 mg/dL (74-106); Potassium 3.4 mmol/L (3.5-5.1); Sodium 143 mmol/L (136-145); Total Protein 6.5 g/dL (6.4-8.2)
[2021-10-28 20:54] LABS: Bilirubin Negative (Negative); Blood Negative (Negative); Clarity Cloudy (Clear); Glucose Negative (Negative); Ketones Trace mg/dL (Negative); Leukocyte Esterase Small (Negative); Nitrite Positive (Negative); Specific Gravity >= 1.030 (1.005-1.025); Urobilinogen 0.2 EU/dL (Up TO 0.2)
[2021-10-28 21:01] LABS: Bacteria Many HPF (Negative); C & S Indicated? Yes; Casts Negative LPF (Negative); Crystals Negative HPF (Negative); Epithelial Cells Few HPF (Negative); Mucus Negative (Negative); RBC Negative HPF (0-2); WBC >50 HPF (0-5)
[2021-10-28] MEDS: Azithromycin 250 MG TAB 500 MG PO (21:39)
[2021-10-28] MEDS: Amoxicillin 500 MG CAP 1000 MG PO (21:39)
[2021-10-28 21:42] VITALS: BP 136/87; PULSE 92; RESP 14; TEMP 36.7; O2SAT 94
== END 2021-10-28 21:53 | disposition home or self-care (01) ==
PROVIDERS: Emergency Provider Emergency Medicine; PCP Nurse Practitioner Family
DX: J18.9 Pneumonia, unspecified organism (principal); R50.9 Fever, unspecified; U07.1 COVID-19; R53.83 Other fatigue
CPT/HCPCS: 36415; 80053; 87077; 96361; 96374; 99284; 71045; 81003; 81015; 85025; 87086; 87186; J1100

== ENCOUNTER → 2021-12-25 09:32 | Outpatient (CLI) | payer MEDICAID, SELFPAY ==
--- NOTE | 2021-12-25 09:00 | DI.US_ITS ---
Exam(s) US LOWER EXTREMITY VENOUS LT EXAM: US LOWER EXTREMITY VENOUS LT CLINICAL HISTORY: Pain in the left upper calf, M79.669, lower leg pain. TECHNIQUE: Lower extremity venous ultrasound performed using grayscale, color-flow, and spectral Do ppler analysis. COMPARISON: No exams were available for comparison FINDINGS: The common femoral, femoral and popliteal veins demonstrate normal compressibility, augmentation, and color Doppler. The posterior tibial veins are patent. No saphenous vein thrombosis or other superfi cial venous thrombosis is seen. No hematoma or Ruelas's cyst is seen. IMPRESSION: Negative lower extremity ultrasound. No evidence of DVT. DATA REPOSITORY:
== END ==
PROVIDERS: PCP Nurse Practitioner Family; Visit Provider Nurse Practitioner Family
DX: M79.662 Pain in left lower leg (principal)
CPT/HCPCS: 93971

== ENCOUNTER 2021-12-31 04:07 | Outpatient (CLI) | payer MEDICAID, SELFPAY | END 2021-12-31 04:08 | disposition home or self-care (01) | LOC: DS 04:07 | PROVIDERS: PCP Nurse Practitioner Family; Visit Provider Dietitian, Registered ==

== ENCOUNTER → 2022-01-05 00:43 | Outpatient (CLI) | payer MEDICAID, SELFPAY ==
--- NOTE | 2022-01-05 08:06 | DI.MAMMO_ITS ---
Exam(s) MAMMO SCREENING EXAM: MAMMO SCREENING CLINICAL HISTORY: screening, Z12.39. TECHNIQUE: Bilateral full field digital CC and MLO mammographic images were obtained with 3D tomosyn thesis and utilizing computer aided detection (CAD). COMPARISON: Prior mammogram August 2020.. Mammograms prior to that they performed in [place] are a pparently not available. FINDINGS: There has been no significant change in the appearance and distribution of the fibroglandular tissue. There are no CAD designations. There are no new spiculated masses nor malignant appearing microcalcification groups. Previously described benign-appearing asymmetric tissue anteriorly in the left breast is unchanged There is no significant architectural distortion nor skin thickening-retraction. IMPRESSION: No radiographic evidence of malignancy. BI-RADS Category 1 - Negative Breast Density - Category B - Scattered areas of fibroglandular density Breast density Category C or D implies that the patient has dense breast tissue. Dense breast tissue can make it harder to find cancer on a mammogram. Dense breast tissue is also associated with an incr eased risk of breast cancer. This information about the result of the mammogram report was provided to the patient to raise their awareness. Use this report when you speak with the patient about their risks for breast cancer, which includes their family history. At that time, you may recommend additional screening tests (Ultrasoun d or MRI) as these tests may add significant information. A negative radiographic report should not delay biopsy if a dominant or clinically suspicious mass is present. Up to ten percent of cancers are not identified on mammography. A negative report may reinforce clinical impression. Adenosis and dense breasts may obscure an underlying neoplasm. False positive reports average 6 to 10%. Patient will receive a letter notifying them of these results.
== END ==
PROVIDERS: PCP Nurse Practitioner Family; Visit Provider Nurse Practitioner Family
DX: Z12.31 Encounter for screening mammogram for malignant neoplasm of breast (principal)
CPT/HCPCS: 77063; 77067

== ENCOUNTER 2022-01-22 02:15 | Outpatient (CLI) | payer MEDICAID, SELFPAY | END 2022-01-22 02:16 | disposition home or self-care (01) | LOC: DS 02:15 | PROVIDERS: PCP Nurse Practitioner Family; Visit Provider Dietitian, Registered ==

== ENCOUNTER 2022-02-10 11:26 | Outpatient (CLI) | payer MEDICAID, SELFPAY ==
--- NOTE | 2022-02-10 06:00 | DI.RAD_ITS ---
Exam(s) XR PAIN CLINIC FLUORO JOINT IN EXAM: XR PAIN CLINIC FLUORO JOINT IN CLINICAL HISTORY: Dx: Osteoarthritis of the knee TECHNIQUE: 2D and realtime digital imaging was performed. Radiologist not present. CONTRAST MATERIAL: None. COMPARISON: No exams were available for comparison FINDINGS: Fluoroscopy was provided for pain management therapy. Please refer to procedure report or details. Cumulative dose: Artier=3.93 mGy IMPRESSION: RADIATION DOSE DELIVERED:
[2022-02-10 11:36] VITALS: BP 143/94; PULSE 81; RESP 20; TEMP 36.7; O2SAT 97
[2022-02-10 12:22] VITALS: PULSE 80; O2SAT 100
[2022-02-10] MEDS: Lidocaine 2% Pres-Free 2 ML VIAL IJ (12:24)
[2022-02-10] MEDS: Omnipaque 240 MG/ML 50 ML BTL IJ (12:24)
--- NOTE | 2022-02-10 14:16 | PDOC.PAIN_ITS ---
Pain Clinic Procedure Note Procedure Note Procedure Note: RIGHT GENICULAR NERVE BLOCK Date of Service: February 10, 2022 Patient: Juany Vasquez Provider: Eder Lemus DO, MPH Pre-operative diagnosis: Knee pain Post-operative diagnosis: Same Pre-procedure pain: VAS= 6/10 COMMENTS: I evaluated her in the clinic on 11/18/21. Juany Vasquez has been referred to the [facility] for right genicular nerve block. Juany was interviewed and the medical record reviewed. There were no medical, pharmacologic, radiographic or other structural contraindications to attempting fluoroscopically guided RIGHT genicular nerve block. Risks and potential side effects as well as potential benefit of the procedure were reviewed with Juany , and HER voiced concerns were addressed. After I believed that the patient was completely informed, the printed consent form was signed. Standard time-out procedure was performed. Juany was placed in the supine position on the fluoroscopy table and automated blood pressure cuff and pulse oximeter applied. The skin entry points for approaching RIGHT superolateral genicular nerve, the superomedial genicular nerve, the terminal branch of the nerve vastus intermedius and the inferomedial genicular was identified under the most advantageous fluoroscopic view and marked. Following thorough Chlorhexadine preparation of the skin and draping, 1% lidocaine infiltration of the skin entry point and subcutaneous tissues was accomplished using a 1.5 25G needle. Next, the 3.5 25G spinal needle was advanced to os at the location of the specific nerve root using fluoroscopic guidance. Next, 1 ml of 1% Lidocaine was injected at each site. The needles were removed without difficulty. Juany's vital signs were stable throughout the procedure and were as recorded in the docflowsheet by the nursing staff. If given, dosages of intravenous drugs for anxiolysis and analgesia were documented in MAR. Follow up plans and appointments were discussed with the Juany . Post procedure instruction was given as documented in nursing documentation and having met discharge criteria, Juany was discharged from the [facility]. COMMENTS: No apparent complications. Post-procedure pain: VAS = 2/10. The patient will keep track of her RIGHT knee pain over the next four hours. If Juany has sufficient pain relief, Juany will be a candidate for radiofrequency ablation at the same nerves. Ed WJ1, Luis Daniel SJ, Pipo ShahG, Yaw ShahG, Triston POPE, Jo-Ann PH, Param JW. Radiofrequency treatment relieves chronic knee osteoarthritis pain: a double-blind randomized controlled trial. Pain. 2011 Oct;152(3):481-7. doi: 10.1016/j.pain.2010.09.029. Sumaya S1, Robert ON2, Spring Y3, ?zl?ela P2, Artem U1, Alejandro ?m?rl? I. Which one is more effective for the clinical treatment of chronic pain in knee osteoarthritis: radiofrequency neurotomy of the genicular nerves or intra- articular injection? Int J Rheum Dis. 2016 Apr 09. F/U with our office by phone with her 1-4 hour post-procedure pain VAS scores. I personally performed this entire procedure. Eder Lemus DO, MPH Attending Physician Pain Management
== END 2022-02-10 11:27 | disposition home or self-care (01) ==
LOC: PC 11:27
PROVIDERS: PCP Nurse Practitioner Family; Visit Provider Preventive Medicine Occupational Medicine
DX: M25.561 Pain in right knee (principal)
CPT/HCPCS: 64454; 77002; Q9967

== ENCOUNTER 2022-05-27 12:29 | Outpatient (CLI) | payer MEDICAID, SELFPAY ==
--- NOTE | 2022-05-27 06:00 | DI.RAD_ITS ---
Exam(s) XR PAIN CLINIC FLUORO JOINT IN EXAM: XR PAIN CLINIC FLUORO JOINT IN CLINICAL HISTORY: Dx: Osteoarthritis of the knee TECHNIQUE: 2D and realtime digital imaging was performed. CONTRAST MATERIAL: Refer to procedure report. COMPARISON: No exams were available for comparison FINDINGS: Fluoroscopy was provided for Dr. Lemus during the performance of a genicular nerve block. Please ref er to the procedure report for complete details. Ka,r=6.04 mGy IMPRESSION:
[2022-05-27 12:44] VITALS: BP 131/81; PULSE 90; RESP 20; TEMP 37; O2SAT 96
--- NOTE | 2022-05-27 12:59 | PDOC.PAIN_ITS ---
Date of service: 05/27/22 Time of Service: 12:59 Pain Clinic Procedure Note Procedure Note Procedure Note: RIGHT GENICULAR NERVE RADIOFREQUENCY ABLATION WITH THE AVENOS MACHINE Date of Service: May 27, 2022 Patient: Juany Vasquez Provider: Eder Lemus DO, MPH Pre-operative diagnosis: Right knee pain and osteoarthritis Post-operative diagnosis: Same Pre-procedure pain VAS was 6/10. COMMENTS: Previous Genicular nerve block to the RIGHT knee. Juany Vasquez has been referred to the [facility] for RIGHT genicular nerve radiofrequency ablation. Juany was interviewed and the medical record reviewed. There were no medical, pharmacologic, radiographic or other structural contraindications to attempting fluoroscopically guided RIGHT genicular nerve radiofrequency ablation. Risks and potential side effects as well as potential benefit of the procedure were reviewed with Juany Vasquez , and HER voiced concerns were addressed. After I believed that the patient was completely informed, the printed consent form was signed. Standard time-out procedure was performed. Juany was placed in the supine position on the fluoroscopy table and automated blood pressure cuff and pulse oximeter applied. The skin entry points for approaching RIGHT superolateral genicular nerve, the superomedial genicular nerve and the inferomedial genicular was identified under the most advantageous fluoroscopic view and marked. Following thorough Chlorhexadine preparation of the skin and draping, 1% lidocaine infiltration of the skin entry point and subcutaneous tissues was accomplished using a 1.5 25G needle. Next, the 10 cm 18G RF Cannula with a 10 mm active tip was advanced to os at the location of the specific nerve roots (3) using fluoroscopic guidance. Next, sensory and motor testing was performed and no abnormal findings were found. Next, 1 cc of 2% Lidocaine was injected at each site. The lesion was then created with 80 degrees C for 90 seconds. Each needle was advance 1 cm and the lesion was completed again. Each cannula was advanced until the tip reached the posterior aspect of the bone shaft. 1/3 cc of Depomedrol (40 mg/cc) was then injected at each site followed by 2 cc of 0.5% Bupivacaine as the needle was withdrawn. The needles were removed without difficulty. Juany's vital signs were stable throughout the procedure and were as recorded in the docflowsheet by the nursing staff. If given, dosages of intravenous drugs for anxiolysis and analgesia were documented in MAR. Follow up plans and appointments were discussed with the Juany Vasquez . Post procedure instruction was given as documented in nursing documentation and having met discharge criteria, Juany was discharged from the [facility]. COMMENTS: No complications. Ed WJ1, Luis Daniel SJ, Pipo JG, Yaw JG, Triston POPE, Park PH, Param JW. Radiofrequency treatment relieves chronic knee osteoarthritis pain: a double-blind randomized controlled trial. Pain. 2010;152(3):481-7. doi: 10.1016/j.pain.2010.09.029. Sumaya S1, Robert ON2, Spring Y3, ?zl?lertru P2, Artem U1, Alejandro ?m?rl? I. Which one is more effective for the clinical treatment of chronic pain in knee osteoarthritis: radiofrequency neurotomy of the genicular nerves or intra- articular injection? Int J Rheum Dis. 2016 Apr 09. F/U with our office as needed. If this procedure is found to be effective for at least 6 months, it can be repeated. Post-procedure pain VAS = 0/10. Eder Lemus DO, MPH [facility]-Pain Management [facility]
[2022-05-27] MEDS: Midazolam 2 MG/2 ML VIAL IVP (13:33)
[2022-05-27] MEDS: fentaNYL 100 MCG/2 ML VIAL IVP ×3 (13:33→14:09)
[2022-05-27] MEDS: Lactated Ringers 500 ML 80 ML IV (14:10)
[2022-05-27 14:14] VITALS: PULSE 70; RESP 20; O2SAT 99
[2022-05-27] MEDS: Lidocaine 2% Multi-Dose 20 ML VIAL IJ (14:32)
[2022-05-27] MEDS: methylPREDNISolone ACETATE 40 MG/ML VIAL IJ (14:33)
[2022-05-27] MEDS: Bupivacaine 0.5% Pres-Free 10 ML VIAL IJ (14:33)
== END 2022-05-27 12:30 | disposition home or self-care (01) ==
LOC: PC 12:30
PROVIDERS: PCP Nurse Practitioner Family; Visit Provider Preventive Medicine Occupational Medicine
DX: M17.11 Unilateral primary osteoarthritis, right knee (principal); M25.561 Pain in right knee
CPT/HCPCS: 64624; 77002; J1030; J2250; J3010; J3490

== ENCOUNTER 2022-06-12 04:00 | Emergency (ER) | payer MEDICAID, SELFPAY ==
[2022-06-12 04:11] VITALS: BP 141/89; PULSE 107; RESP 18; TEMP 38.4; O2SAT 99
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
[2022-06-12] MEDS: Azithromycin 250 MG TAB 500 MG PO (04:40)
[2022-06-12] MEDS: Dexamethasone 4 MG TAB 12 MG PO (04:40)
[2022-06-12 05:31] LABS: COVID-19 PCR Negative (Negative); Influenza A PCR Negative (Negative); Influenza B PCR Negative (Negative); RSV PCR Negative (Negative)
[2022-06-12 05:32] LABS: Source Nasopharynx
== END 2022-06-12 04:41 | disposition home or self-care (01) ==
PROVIDERS: Emergency Provider Student in an Organized Health Care Education/Training Program; PCP Nurse Practitioner Family
DX: J06.9 Acute upper respiratory infection, unspecified (principal); J45.909 Unspecified asthma, uncomplicated; Z79.51 Long term (current) use of inhaled steroids; Z86.16 Personal history of COVID-19; Z87.891 Personal history of nicotine dependence; Z20.822 Contact with and (suspected) exposure to COVID-19
CPT/HCPCS: 87637; 99283; 99284; J8540

== ENCOUNTER 2022-06-24 08:34 | Outpatient (CLI) | payer MEDICAID, SELFPAY ==
[2022-06-24 12:25] LABS: Absolute Basophil Count 0.14 10^3/uL (0.0-0.2); Absolute Eosinophil Count 0.25 10^3/uL (0.0-0.7); Basophils % 0.5; Eosinophils % 0.9; HCT 43.3 % (36.0-46.0); HGB 14.5 g/dL (11.2-15.7); Immature Grans % 1.8; Lymphocytes % 35.7; MCH 29.5 pg (27.0-33.0); MCHC 33.5 % (32.0-36.0); MCV 88 fL (80-95); MPV 11.8 fL (8.0-11.0); Monocytes % 4.1; Platelet Count 289 10^3/uL (130-400); RBC 4.91 10^6/uL (3.93-5.22); RDW-SD 45.2 fL
[2022-06-24 12:26] LABS: Absolute Lymphocyte Count 9.78 10^3/uL (1.2-3.4); Absolute Monocyte Count 1.12 10^3/uL (0.1-0.8); Absolute Neutrophil Count 15.61 10^3/uL (1.2-6.7)
[2022-06-24 12:41] LABS: ALT 28 U/L (14-59); AST 22 U/L (15-37); Albumin 3.1 g/dL (3.4-5.0); Alkaline Phosphatase 86 U/L (46-116); Anion Gap 7.1 mmol/L (3-11); BUN 17 mg/dL (7-18); Bilirubin, Total 0.3 mg/dL (0.2-1.0); CO2 28.9 mmol/L (21.0-32.0); Calcium 9.4 mg/dL (8.5-10.1); Chloride 101 mmol/L (98-107); Glucose 93 mg/dL (74-106); Sodium 137 mmol/L (136-145); Total Protein 6.9 g/dL (6.4-8.2)
[2022-06-24 12:58] LABS: Diff Comment Agrees w/ Instrument
[2022-06-24 12:59] LABS: RBC Morphology Normal
[2022-06-24 13:01] LABS: D-Dimer 598 ng/mlFEU (<500)
[2022-06-24 13:15] LABS: WBC 27.39 10^3/uL (4.4-10.8)
== END 2022-06-24 08:35 | disposition home or self-care (01) ==
LOC: LOS 08:34
PROVIDERS: PCP Nurse Practitioner Family; Referring Provider Nurse Practitioner Family; Visit Provider Nurse Practitioner Family
DX: J45.901 Unspecified asthma with (acute) exacerbation (principal)
CPT/HCPCS: 36415; 80053; 85025; 85379

== ENCOUNTER 2022-06-24 17:50 | Emergency (ER) | payer MEDICAID, SELFPAY ==
[2022-06-24 17:57] VITALS: BP 129/83; PULSE 104; RESP 20; TEMP 37.1; O2SAT 98
[2022-06-24 19:16] VITALS: BP 145/78; PULSE 88; RESP 18; O2SAT 98
[2022-06-24] MEDS: Normal Saline 1,000 ML 1000 ML IV (19:47)
[2022-06-24 19:53] LABS: Lactate 1.4 mmol/L (0.6-1.4)
[2022-06-24 19:55] LABS: Abs Immature Grans 0.38 10^3/uL (0.0-0.06); HCT 41.2 % (36.0-46.0); HGB 13.8 g/dL (11.2-15.7); MCH 29.9 pg (27.0-33.0); MCHC 33.5 % (32.0-36.0); MCV 89 fL (80-95); MPV 11.3 fL (8.0-11.0); Platelet Count 279 10^3/uL (130-400); RBC 4.62 10^6/uL (3.93-5.22); RDW 13.8 % (11.7-14.6); RDW-SD 44.7 fL; WBC 22.79 10^3/uL (4.4-10.8)
[2022-06-24 20:07] LABS: Absolute Lymphocyte Count 10.48 10^3/uL (1.2-3.4); Absolute Neutrophil Count 11.85 10^3/uL (1.2-6.7); Atypical Lymphocytes % 10
[2022-06-24 20:08] LABS: Absolute Monocyte Count 0.46 10^3/uL (0.1-0.8); Diff Comment Manual Differential; RBC Morphology Normal
[2022-06-24 20:09] LABS: ALT 28 U/L (14-59); AST 21 U/L (15-37); Albumin 3.1 g/dL (3.4-5.0); Alkaline Phosphatase 88 U/L (46-116); Anion Gap 5.4 mmol/L (3-11); BUN 16 mg/dL (7-18); Bilirubin, Total 0.2 mg/dL (0.2-1.0); CO2 29.6 mmol/L (21.0-32.0); Calcium 8.9 mg/dL (8.5-10.1); Chloride 102 mmol/L (98-107); Glucose 100 mg/dL (74-106); Potassium 3.6 mmol/L (3.5-5.1); Sodium 137 mmol/L (136-145); Total Protein 6.5 g/dL (6.4-8.2)
[2022-06-24 20:18] LABS: TSH 2.63 uIU/mL (0.36-3.74); Troponin I < 50 ng/L (<or=60)
[2022-06-24 20:24] LABS: Procalcitonin < 0.1 ng/mL
[2022-06-24 20:27] VITALS: BP 138/78; PULSE 80; RESP 18; O2SAT 96
[2022-06-24 20:29] LABS: COVID-19 PCR Negative (Negative); Influenza A PCR Negative (Negative); Influenza B PCR Negative (Negative); RSV PCR Negative (Negative)
[2022-06-24 20:32] LABS: Source Nasopharynx
--- NOTE | 2022-06-24 20:45 | DI.CT_ITS ---
Exam(s) CT CHEST PE CTA EXAM: CT CHEST PE CTA CLINICAL HISTORY: chest pain, ddimer elevated. TECHNIQUE: Imaging Protocol: Axial CT angiography was performed with multi-slice acquisition and mu lti-planar and/or 3D reconstructions. CONTRAST MATERIAL: Intravenous: Omnipaque 350 contrast volume:85 mL COMPARISON: CT CT THORAX ABD/PEL CTA from 12/14/2020 FINDINGS: The examination is limited due to patient motion artifact. Tracheobronchial tree: Patent where visualized. Pulmonary parenchyma: Multifocal ground-glass opacities are present. There is consolidation in the m edial aspect of the right middle lobe. No architectural distortion. Pulmonary Arteries: No evidence of filling defect to suggest pulmonary emboli. Mediastinum and Dian: No dominant adenopathy or fluid collection. The esophagus is unremarkable. Visualized thyroid gland: Unremarkable. Pleura: No effusion or pneumothorax. Heart: The heart is not dilated. No coronary artery calcifications are seen. No pericardial effusion. Aorta: Thoracic aorta non-dilated. No evidence of dissection. Upper abdomen: Unremarkable. Soft tissues: Unremarkable. Bones: Within normal limits for the patient's age. IMPRESSION: 1. No evidence of pulmonary embolism, thoracic aortic dissection or aneurysm. 2. Ground-glass opacities in the lungs. This may represent an infectious or inflammatory process or edema. 3. Area of consolidation involving the medial aspect of the right middle lobe. Pneumonia cannot be e xcluded. RADIATION DOSE DELIVERED: 602.71mGy.cm Total DLP DATA REPOSITORY: All CT scans at this facility are submitted to the National Radiology Data Registry (NRDR) Dose Index Registry (DIR) with the [employer] (A[employer]). RADIATION OPTIMIZATION: All CT scans at this facility use at least one of these dose optimization te chniques: automated exposure control; mA and/or kV adjustment per patient size (includes targeted exa ms where dose is matched to clinical indication); or iterative reconstruction.
[2022-06-24 21:00] VITALS: BP 136/78; PULSE 78; RESP 18; O2SAT 100
[2022-06-24] MEDS: Omnipaque 350 MG/ML 100 ML BTL IJ (21:27)
--- NOTE | 2022-06-24 21:56 | DI.VRAD_ITS ---
PROCEDURE INFORMATION: Exam: CTA Chest With Contrast Exam date and time: 06/24/2022 9:33 PM Age: 47 years old Clinical indication: Other: Chest pain, elevated d-dimer TECHNIQUE: Imaging protocol: Computed tomographic angiography of the chest with contrast. 3D rendering (Not supervised by radiologist): MIP and/or 3D reconstructed images were created by the technologist. Radiation optimization: All CT scans at this facility use at least one of these dose optimization techniques: automated exposure control; mA and/or kV adjustment per patient size (includes targeted exams where dose is matched to clinical indication); or iterative reconstruction. Contrast material: 350; Contrast volume: 85 ml; Contrast route: INTRAVENOUS (IV); COMPARISON: CT THORAX ABD/PEL CTA 12/14/2020 10:36 PM FINDINGS: Mildly limited due to respiratory motion artifact Pulmonary arteries: No pulmonary emboli. Aorta: No aortic aneurysm. No aortic dissection. Lungs: Mild interstitial/ground-glass opacities. Minimal subsegmental atelectasis No consolidation. No masses. Pleural spaces: Unremarkable. No pneumothorax. No pleural effusion. Heart: Unremarkable. No cardiomegaly. No pericardial effusion. Lymph nodes: Unremarkable. No enlarged lymph nodes. Bones/joints: Unremarkable. No acute fracture. Soft tissues: Unremarkable. Tiny hiatal hernia Left renal scarring IMPRESSION: No pulmonary emboli Mild interstitial/ground-glass opacities which may be infectious/inflammatory Dictated and Authenticated by: Gerson Mckeon MD. Ordering:HUMBERTO Light MD
[2022-06-24 22:00] VITALS: BP 145/80; PULSE 89; RESP 18; O2SAT 98
[2022-06-24] MEDS: guaiFENesin/CODEINE PHOSPHATE 10 ML CUP PO (23:03)
[2022-06-24 23:06] VITALS: BP 126/78; PULSE 68; RESP 18; TEMP 36.8; O2SAT 100
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
== END 2022-06-24 23:06 | disposition home or self-care (01) ==
PROVIDERS: Emergency Provider Physician Assistant; PCP Nurse Practitioner Family
DX: B34.9 Viral infection, unspecified (principal); D72.829 Elevated white blood cell count, unspecified; R05.1 Acute cough; R07.9 Chest pain, unspecified; R79.1 Abnormal coagulation profile
CPT/HCPCS: 71275; 80053; 84145; 87040; 87637; 96360; 99284; 83605; 84443; 84484; 85025; J3490

== ENCOUNTER 2022-07-02 09:56 | Outpatient (CLI) | payer MEDICAID, SELFPAY ==
--- NOTE | 2022-07-02 09:15 | DI.RAD_ITS ---
Exam(s) XR KNEE RT 3V AP,LAT,FELICIA EXAM: XR KNEE RT 3V AP,LAT,FELICIA CLINICAL HISTORY: f/u R patellar chondromalacia. TECHNIQUE: 2D digital imaging was performed. COMPARISON: CR XR KNEE RT 4V AP,LAT,FELICIA,PAT from 01/07/2021 FINDINGS: 3 views No evidence of fracture or obvious joint effusion. Bone density normal. No degenerative changes gómez dent. No osseous lesions. IMPRESSION: No significant osseous findings. No joint effusion DATA REPOSITORY: RADIATION DOSE DELIVERED:
== END 2022-07-02 09:57 | disposition home or self-care (01) ==
LOC: DIORS 09:56
PROVIDERS: PCP Nurse Practitioner Family; Referring Provider Nurse Practitioner Family; Visit Provider Student in an Organized Health Care Education/Training Program
DX: M22.2X1 Patellofemoral disorders, right knee (principal)
CPT/HCPCS: 73562

== ENCOUNTER 2022-07-06 03:38 | Emergency (ER) | payer MEDICAID, SELFPAY ==
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
[2022-07-06 03:43] VITALS: BP 108/60; PULSE 114; RESP 18; TEMP 36.5; O2SAT 99
[2022-07-06 04:11] LABS: Source Nasal/Nares
[2022-07-06] MEDS: Dexamethasone 10 MG/ML VIAL PO (04:19)
[2022-07-06] MEDS: Nystatin 500000 UNITS/5 ML SUSP 5ML CUP PO (04:35)
[2022-07-06 04:47] LABS: COVID-19 PCR Negative (Negative)
== END 2022-07-06 04:36 | disposition home or self-care (01) ==
PROVIDERS: Emergency Provider Physician Assistant; PCP Nurse Practitioner Family
DX: J18.9 Pneumonia, unspecified organism (principal); K13.79 Other lesions of oral mucosa; R00.0 Tachycardia, unspecified; Z20.822 Contact with and (suspected) exposure to COVID-19
CPT/HCPCS: 87635; 87880; 99283; 99284; J1100

== ENCOUNTER 2022-07-08 05:51 | Emergency (ER) | payer MEDICAID, SELFPAY ==
[2022-07-08 05:56] VITALS: BP 154/67; PULSE 115; RESP 20; O2SAT 98
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
[2022-07-08] MEDS: Lidocaine/Epinephri/Tetracaine Topical Gel 3 ML (06:15)
[2022-07-08] MEDS: Ketorolac 30 MG/ML VIAL IM (06:19)
--- NOTE | 2022-07-08 06:39 | NUR.NOTE ---
Referral faxed to [facility] wellness to f/u within a week for labial abscess.Nursing Note:
[2022-07-08] MEDS: Doxycycline Hyclate 100 MG CAP PO (06:51)
[2022-07-08] MEDS: Amoxicillin 875/Clav. 125 TAB PO (06:51)
--- NOTE | 2022-07-11 11:58 | NUR.NOTE ---
Nursing Note: Accessed chart to look up whether or not on antibiotic.
== END 2022-07-08 06:53 | disposition home or self-care (01) ==
PROVIDERS: Emergency Provider Emergency Medicine; PCP Nurse Practitioner Family
DX: N76.4 Abscess of vulva (principal); E11.9 Type 2 diabetes mellitus without complications; J45.909 Unspecified asthma, uncomplicated; Z86.16 Personal history of COVID-19; Z79.51 Long term (current) use of inhaled steroids
CPT/HCPCS: 56405; 96372; 99284; 87070; 87205; J1885

== ENCOUNTER 2022-07-08 15:21 | Observation (INO) | payer MEDICAID, SELFPAY ==
[2022-07-08] VITALS (107 sets, daily range): BP systolic 93–157; BP diastolic 40–118; PULSE 85–125; RESP 12–27; TEMP 37.1–39.4; O2SAT 85–99
--- NOTE | 2022-07-08 16:30 | DI.CT_ITS ---
Exam(s) CT ABDOMEN PELVIS W EXAM: CT ABDOMEN PELVIS W CLINICAL HISTORY: labial abscess, fever. TECHNIQUE: Imaging Protocol: Axial computed tomography images with coronal and sagittal reformatted images were created and reviewed CONTRAST MATERIAL: Intravenous: Omnipaque 100cc Oral: None COMPARISON: CT CT CHEST PE CTA from 06/24/2022 FINDINGS: VISUALIZED LUNG BASES: No nodules nor pleural effusions evident. ABDOMEN: There is no ascites. LIVER: Liver is hypodense implying steatosis but there are no discrete focal hepatic lesions seen. N o dilated intrahepatic ducts. GALLBLADDER/BILIARY: No obvious gallbladder pathology. CBD is not dilated. PANCREAS: No evidence of pancreatic mass nor dilatation of the pancreatic duct. SPLEEN: Spleen is not enlarged. No obvious intrasplenic lesions. Splenic and portal veins are paten t. ADRENALS: There are no significant adrenal masses. KIDNEYS:There is a benign cyst in the upper pole region of the right kidney which measures 4.8 by 4.4 cm. No solid renal masses. No calculi nor hydronephrosis.. ABDOMINAL AORTA: Abdominal aorta is not enlarged. LYMPH NODES:There is no retroperitoneal nor paraaortic adenopathy. ABDOMINAL WALL: No evidence of significant anterior abdominal wall nor inguinal hernia. GI: There is no evidence of bowel obstruction, free air, nor abscess. PELVIS: GI: Appendix is surgically absent.No evidence of sigmoid diverticulitis. LYMPH NODES: There is no intrapelvic nor inguinal adenopathy. REPRODUCTIVE: Uterus is surgically absent. No adnexal masses. No free fluid in the pelvis. URINARY BLADDER: Partially collapsed. No obvious abnormality. OTHER: There is inflammatory stranding in the fat of the lab be a mature on the left side extending i nto the suprapubic fat. There is no formed abscess and no abnormal gas evident in the soft tissues o f this level. Also mild extension of fat stranding into the left ischial rectal fat space. OSSEOUS: No osseous lesions and no fractures. IMPRESSION: 1. 2. 3. 4. RADIATION DOSE DELIVERED: 1,533.94mGy.cm Total DLP DATA REPOSITORY: All CT scans at this facility are submitted to the National Radiology Data Registry (NRDR) Dose Index Registry (DIR) with the [employer] [place] [employer] (A[employer]). RADIATION OPTIMIZATION: All CT scans at this facility use at least one of these dose optimization te chniques: automated exposure control; mA and/or kV adjustment per patient size (includes targeted exa ms where dose is matched to clinical indication); or iterative reconstruction.
--- NOTE | 2022-07-08 16:32 | DI.RAD_ITS ---
Exam(s) XR CHEST 1V IN DI DEPT EXAM: XR CHEST 1V IN DI DEPT CLINICAL HISTORY: fever. TECHNIQUE: 2D digital imaging was performed. COMPARISON: No exams were available for comparison FINDINGS: Single AP portable view. Heart size is upper normal. The mediastinum is not widened. Lungs are clear. No infiltrates nor obvious pleural effusions. IMPRESSION: No acute pulmonary findings on this single AP portable view of the chest. DATA REPOSITORY: RADIATION DOSE DELIVERED:
[2022-07-08 17:03] LABS: Abs Immature Grans 0.09 10^3/uL (0.0-0.06); Absolute Basophil Count 0.06 10^3/uL (0.0-0.2); Absolute Eosinophil Count 0.23 10^3/uL (0.0-0.7); Absolute Monocyte Count 0.71 10^3/uL (0.1-0.8); Basophils % 0.4; Eosinophils % 1.4; HCT 41.7 % (36.0-46.0); HGB 13.7 g/dL (11.2-15.7); Immature Grans % 0.6; Lymphocytes % 15.4; MCH 29.3 pg (27.0-33.0); MCHC 32.9 % (32.0-36.0); MCV 89 fL (80-95); MPV 11.6 fL (8.0-11.0); Monocytes % 4.4; Neutrophils % 77.8; Platelet Count 246 10^3/uL (130-400); RBC 4.67 10^6/uL (3.93-5.22); RDW-SD 45.6 fL; WBC 16.21 10^3/uL (4.4-10.8)
[2022-07-08 17:06] LABS: Absolute Neutrophil Count 12.61 10^3/uL (1.2-6.7)
[2022-07-08] MEDS: Normal Saline 1,000 ML 1000 ML IV ×2 (17:13→19:19)
[2022-07-08] MEDS: Acetaminophen 500 MG TAB 1000 MG PO (17:13)
[2022-07-08 17:24] LABS: ALT 32 U/L (14-59); AST 50 U/L (15-37); Albumin 3.2 g/dL (3.4-5.0); Alkaline Phosphatase 86 U/L (46-116); Anion Gap 8.4 mmol/L (3-11); BUN 20 mg/dL (7-18); Bilirubin, Total 0.4 mg/dL (0.2-1.0); CO2 25.6 mmol/L (21.0-32.0); Calcium 8.8 mg/dL (8.5-10.1); Chloride 104 mmol/L (98-107); Glucose 94 mg/dL (74-106); Potassium 5.7 mmol/L (3.5-5.1); Sodium 138 mmol/L (136-145); Total Protein 7.4 g/dL (6.4-8.2)
--- NOTE | 2022-07-08 17:30 | RT.EKG_ITS ---
APPROVED REPORT Exam: Resting ECG Reason for Exam: hyperkalemia Patient Location: E HR:118 bpm ECG Measurements Heart Rate 118 AXIS CO 119 P 55 QRSd 69 QRS 62 QT 313 T -2 QTc 439 Conclusion Sinus tachycardia...rate> 99. Sinus. Normal axis. No STEMI. I have reviewed and interpreted ECG and agree with software generated interpretation.
[2022-07-08 17:44] LABS: Procalcitonin < 0.1 ng/mL
[2022-07-08 17:46] LABS: COVID-19 PCR Negative (Negative); Influenza A PCR Negative (Negative); Influenza B PCR Negative (Negative); RSV PCR Negative (Negative)
[2022-07-08 17:47] LABS: Source Nasopharynx
[2022-07-08 18:16] LABS: Bilirubin Negative (Negative); Blood Negative (Negative); Clarity Clear (Clear); Glucose Negative (Negative); Ketones Negative (Negative); Leukocyte Esterase Negative (Negative); Nitrite Negative (Negative); Specific Gravity 1.025 (1.005-1.025); Urobilinogen 0.2 EU/dL (Up TO 0.2)
[2022-07-08] MEDS: Omnipaque 350 MG/ML 100 ML BTL IJ (18:41)
[2022-07-08] MEDS: Normal Saline - Diluent 50 ML VIAL IV (18:41)
[2022-07-08] MEDS: Normal Saline Flush 10 ML SYR IVP (18:42)
[2022-07-08] MEDS: Ondansetron 4 MG/2 ML VIAL IVP (19:02)
[2022-07-08] MEDS: fentaNYL 100 MCG/2 ML VIAL 50 MCG IVP ×2 (19:04→20:23)
--- NOTE | 2022-07-08 19:18 | DI.VRAD_ITS ---
PROCEDURE INFORMATION: Exam: CT Abdomen And Pelvis With Contrast Exam date and time: 07/08/2022 6:32 PM Age: 47 years old Clinical indication: Other: Labial abscess, fever; Prior surgery; Surgery date: 6+ months; Surgery type: Hysterectomy TECHNIQUE: Imaging protocol: Computed tomography of the abdomen and pelvis with contrast. Contrast material: OMNIPAQUE 350; Contrast volume: 100 ml; Contrast route: INTRAVENOUS (IV); COMPARISON: CT THORAX ABD/PEL CTA 12/14/2020 10:36 PM FINDINGS: Lungs: Lung bases are clear. Liver: Mild fatty infiltration liver. No mass. Gallbladder and bile ducts: Normal. No calcified stones. No ductal dilation. Pancreas: Normal. No ductal dilation. Spleen: Normal. No splenomegaly. Adrenal glands: Normal. No mass. Kidneys and ureters: No hydronephrosis. Left kidney is smaller than the right. This is similar to previous. A simple cyst in the right kidney measures 4.4 cm. Nondilated ureters. No ureteral stones. Stomach and bowel: Unremarkable stomach. Nondilated small bowel. Mild fluid accumulation is noted in the small bowel. Fat planes around loops of small bowel are indistinct. There are no inflammatory changes observed around the colon. Appendix: The appendix is surgical absent. Intraperitoneal space: Mild mesenteric fat stranding. No significant free fluid. Negative for free air. Negative for abscess. Vasculature: Unremarkable. No abdominal aortic aneurysm. Lymph nodes: Mesenteric lymph nodes are mildly prominent. Negative for pathologic lymphadenopathy. Urinary bladder: Collapsed and unremarkable. No stones. Reproductive: The uterus is surgically absent. Negative for adnexal mass or cyst. Bones/joints: No compression fractures. No anterolisthesis or retrolisthesis. No endplate erosions. Pubic rami are intact. Soft tissues: Fat stranding is noted in the labia majora on the left, extending into the suprapubic subcutaneous fat. No fluid collections are observed, as visualized. No abnormal gas is observed in the abdominal wall. No subcutaneous or intramuscular fluid collections are observed. The labia are not completely visualized. The ischiopubic fat spaces are normal. Negative for abdominal wall hernia. IMPRESSION: 1. Focal inflammatory changes in the left labia majora. 2. No abdominal wall or internal extension. 3. No abscess visualized. 4. Additional findings of enteritis. Dictated and Authenticated by: Ethan Gonzalez MD. Ordering:HUMBERTO Light MD
--- NOTE | 2022-07-08 19:20 | DI.VRAD_ITS ---
PROCEDURE INFORMATION: Exam: XR Chest Exam date and time: 07/08/2022 6:42 PM Age: 47 years old Clinical indication: Other: Fever TECHNIQUE: Imaging protocol: Radiologic exam of the chest. Views: 1 view. COMPARISON: CT CHEST PE CTA 06/24/2022 9:33 PM FINDINGS: Tubes, catheters and devices: Monitoring wires noted. Lungs: Unremarkable. No consolidation. Pleural spaces: Unremarkable. No pleural effusion. No pneumothorax. Heart/Mediastinum: Unremarkable. No cardiomegaly. Bones/joints: Unremarkable. Soft tissues: Large body habitus limits evaluation. IMPRESSION: No acute cardiopulmonary abnormality. Dictated and Authenticated by: Ethan Gonzalez MD. Ordering:HUMBERTO Light MD
[2022-07-08 19:51] LABS: Anion Gap 8.4 mmol/L (3-11); BUN 19 mg/dL (7-18); CO2 24.6 mmol/L (21.0-32.0); Calcium 7.9 mg/dL (8.5-10.1); Chloride 107 mmol/L (98-107); Glucose 106 mg/dL (74-106); Potassium 3.8 mmol/L (3.5-5.1); Sodium 140 mmol/L (136-145)
[2022-07-08] MEDS: oxyCODONE 5 MG TAB PO (20:22)
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
[2022-07-08 22:38] LABS: Lactate 0.6 mmol/L (0.6-1.4)
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
[2022-07-08] MEDS: Acetaminophen 325 MG TAB 650 MG PO (23:41)
[2022-07-08] MEDS: Ibuprofen 600 MG TAB PO (23:41)
[2022-07-08] MEDS: Montelukast 10 MG TAB PO (23:42)
[2022-07-08] MEDS: Lactated Ringers 1,000 ML 125 ML IV (23:44)
[2022-07-09] VITALS (16 sets, daily range): BP systolic 99–133; BP diastolic 59–85; PULSE 70–107; RESP 1–22; TEMP 36.6–38.8; O2SAT 92–98
[2022-07-09] MEDS: PIPERACILLIN/TAZO 3.375 GM in Normal Saline 50 ML IVPB ×4 (00:37→18:06)
[2022-07-09] MEDS: Ipratropium 0.5 MG/2.5 ML UPD VIAL 0.25 MG UPD ×3 (01:05→17:39)
[2022-07-09] MEDS: Acetaminophen 325 MG TAB 650 MG PO ×2 (06:11→19:51)
[2022-07-09 07:01] LABS: Absolute Basophil Count 0.04 10^3/uL (0.0-0.2); Absolute Eosinophil Count 0.33 10^3/uL (0.0-0.7); Absolute Lymphocyte Count 3.53 10^3/uL (1.2-3.4); Absolute Monocyte Count 0.74 10^3/uL (0.1-0.8); Basophils % 0.3; Eosinophils % 2.6; HCT 38.5 % (36.0-46.0); HGB 12.5 g/dL (11.2-15.7); Immature Grans % 0.8; Lymphocytes % 27.6; MCH 29.8 pg (27.0-33.0); MCHC 32.5 % (32.0-36.0); MCV 92 fL (80-95); MPV 11.6 fL (8.0-11.0); Monocytes % 5.8; Neutrophils % 62.9; Platelet Count 201 10^3/uL (130-400); RBC 4.19 10^6/uL (3.93-5.22); RDW 14.3 % (11.7-14.6); RDW-SD 48.3 fL; WBC 12.79 10^3/uL (4.4-10.8)
[2022-07-09 07:10] LABS: Absolute Neutrophil Count 8.04 10^3/uL (1.2-6.7)
[2022-07-09 07:22] LABS: Anion Gap 8.3 mmol/L (3-11); BUN 14 mg/dL (7-18); CO2 25.7 mmol/L (21.0-32.0); Calcium 8.2 mg/dL (8.5-10.1); Chloride 107 mmol/L (98-107); Glucose 108 mg/dL (74-106); Potassium 3.7 mmol/L (3.5-5.1); Sodium 141 mmol/L (136-145)
[2022-07-09] MEDS: Enoxaparin 40 MG/0.4 ML SYR SC (08:22)
[2022-07-09] MEDS: Lactated Ringers 1,000 ML 125 ML IV (08:22)
[2022-07-09] MEDS: Ibuprofen 600 MG TAB PO (10:21)
[2022-07-09] MEDS: Normal Saline Flush 10 ML SYR IVP (12:26)
--- NOTE | 2022-07-09 12:55 | CHAPLAIN ---
I had a short visit with Juany. She had two visitors in the room with her. I introduced myself, explained my role and offered support.
--- NOTE | 2022-07-09 14:53 | PDOC.CMIN ---
- If Service Date Differs Date of service: 07/09/22 Time of Service: 14:53 Care Management Initial Assess REASON FOR HOSPITALIZATION:: cellulitis PAST MEDICAL HISTORY/PAST SURGICAL HISTORY:: All Active Problems (Updated 07/08/22 @ 22:59 by ROMULO [place]). Sore throat (Acute). Abscess of labia majora (Acute). Cellulitis (Acute). Sepsis (Acute). Leukocytosis (Acute). Acute viral syndrome (Acute). Patellofemoral syndrome of right knee (Chronic). Chondromalacia patellae of right knee (Chronic). Durolane injection: 07/15/21. Depo-Medrol injection: 02/16/21. Internal derangement of right knee (Chronic). Hyperlipidemia (Chronic). Atopic dermatitis (Chronic). Obesity (Chronic). Medical History (Updated 07/08/22 @ 22:59 by ROMULO [place]). Asthma. Cigarette smoker. COVID-19 virus infection (09/2021). GERD (gastroesophageal reflux disease). Surgical History . History of hysterectomy with unilateral oophorectomy (~1998). S/P appendectomy. S/P left oophorectomy (~2004). S/P right knee arthroscopy PREVIOUS FUNCTIONAL STATUS/SOCIAL/FAMILY SUPPORTS:: Juany lives in a single family home in [place] with her issa Guillory. She has 2 adult children who live outside of the home and who are supportive of Juany. 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 She is independent at baseline and does not receive any services. CURRENT FUNCTIONAL STATUS:: Juany was sitting up in a chair when FRANNY met with her. She was pleasant in interaction and engaged easily in conversation. Juany shared that she has been ill for about a month. She has had a respiratory infection and now has an abscess in her groin area. She admitted that she delayed treatment, hoping that the infection would clear. Juany also talked about her work. She is a pharmacy clinical specialist and informed CM that she loves her job and feels it is really rewarding. Juany stated that she does not feel she needs any services at discharge but understands that may change, depending on the course of her illness. ADVANCE DIRECTIVES:: none on file but provided with a blank copy at her request Has patient been provided with info about the portal/API?: Yes Did the patient sign up for the portal?: No (previously) CODE STATUS:: Full Code INSURANCE COVERAGE / FINANCIAL ISSUES:: Medicaid CURRENT HOME/COMMUNITY SERVICES/EQUIPMENT:: none currently PRIMARY CARE PHYSICIAN:: Chirssy Sampson POTENTIAL DISCHARGE NEEDS:: follow up with PCP and plan of care PATIENT/FAMILY EDUCATION NEEDS:: Review of discharge instructions, limitations, activity, wound care, follow up plan [employer] Me [employer] TRANSPORTATION:: via private vehicle PLAN:: Juany will likely be discharged home with no new services, although she may need home health for wound care. She will follow up with her community providers and plan of care and transport with family. CM will continue to support Juany and her discharge planning needs.
--- NOTE | 2022-07-09 17:58 | PGE_ITS ---
Date of Service Date of service: 07/09/22 Time of Service: 17:58 Assessment and Plan Assessment and plan (1) Cellulitis: Status: Acute Assessment and plan: continue zosyn day 2 no further fevers, feels better, no erythema or worsening symptoms (2) Abscess of labia majora: Status: Acute Assessment and plan: s/p I&D, cultures pending We will continue sitz bath's. discussed with DR England. Subjective Subjective Patient reports: no new complaints, tolerating liquids well, tolerating a regular diet, voiding w/o difficulty and afebrile Exam Const General: cooperative, comfortable and no acute distress Orientation: alert and oriented x3 Eyes Pupils: PERRL Resp Effort & Inspection: normal respiratory effort Cardio Rhythm: regular rhythm Skin Lesions: lesion noted (left inguinal I&D site, no surrounding erythema, small amount dried blood) Rashes: no rashes Neuro General: patient alert and patient oriented x3 Objective Last Vital Signs Temp 36.6 C 07/09/22 16:07 Pulse 82 07/09/22 16:07 Resp 18 07/09/22 16:07 BP 133/85 07/09/22 16:07 Pulse Ox 98 07/09/22 17:39 Laboratory Results - last 24 hr 07/08/22 07/08/22 07/08/22 18:07 19:37 22:35 WBC RBC Hgb Hct MCV MCH MCHC RDW Plt Count MPV Immature Gran % Neutrophils % Lymphocytes % Monocytes % Eosinophils % Basophils % Nucleated RBC % Absolute Neutrophils Absolute Lymphocytes Absolute Monocytes Absolute Eosinophils Absolute Basophils VBG Lactate 0.6 Sodium 140 Potassium 3.8 D Chloride 107 Carbon Dioxide 24.6 Anion Gap 8.4 BUN 19 H Creatinine 1.0 Est GFR (CKD-EPI 2020) 70.80 Glucose 106 Calcium 7.9 L Urine Color Yellow Urine Clarity Clear Urine pH 7.0 Ur Specific [place] 1.025 Urine Protein Negative Urine Ketones Negative Urine Blood Negative Urine Nitrite Negative Urine Bilirubin Negative Urine Urobilinogen 0.2 Ur Leukocyte Esterase Negative Urine Glucose Negative 07/09/22 07/09/22 06:30 06:30 WBC 12.79 H RBC 4.19 Hgb 12.5 Hct 38.5 MCV 92 MCH 29.8 MCHC 32.5 RDW 14.3 Plt Count 201 MPV 11.6 H Immature Gran % 0.8 Neutrophils % 62.9 Lymphocytes % 27.6 Monocytes % 5.8 Eosinophils % 2.6 Basophils % 0.3 Nucleated RBC % 0.0 Absolute Neutrophils 8.04 H Absolute Lymphocytes 3.53 H Absolute Monocytes 0.74 Absolute Eosinophils 0.33 Absolute Basophils 0.04 VBG Lactate Sodium 141 Potassium 3.7 Chloride 107 Carbon Dioxide 25.7 Anion Gap 8.3 BUN 14 Creatinine 1.0 Est GFR (CKD-EPI 2020) 70.80 Glucose 108 H Calcium 8.2 L Urine Color Urine Clarity Urine pH Ur Specific [place] Urine Protein Urine Ketones Urine Blood Urine Nitrite Urine Bilirubin Urine Urobilinogen Ur Leukocyte Esterase Urine Glucose
[2022-07-09] MEDS: Albuterol 2.5 MG/3 ML INH SOLN VIAL IH (19:52)
[2022-07-09] MEDS: Montelukast 10 MG TAB PO (20:53)
[2022-07-10] MEDS: PIPERACILLIN/TAZO 3.375 GM in Normal Saline 50 ML IVPB ×5 (00:15→23:38)
[2022-07-10] MEDS: Ipratropium 0.5 MG/2.5 ML UPD VIAL 0.25 MG UPD ×4 (00:20→17:47)
[2022-07-10 03:19] VITALS: BP 120/77; PULSE 83; RESP 18; TEMP 37.2; O2SAT 97
[2022-07-10 07:31] LABS: Abs Immature Grans 0.12 10^3/uL (0.0-0.06); Absolute Basophil Count 0.04 10^3/uL (0.0-0.2); Absolute Eosinophil Count 0.44 10^3/uL (0.0-0.7); Absolute Monocyte Count 0.63 10^3/uL (0.1-0.8); Basophils % 0.3; Eosinophils % 3.3; HCT 36.5 % (36.0-46.0); Immature Grans % 0.9; MCH 29.9 pg (27.0-33.0); MCHC 32.9 % (32.0-36.0); MCV 91 fL (80-95); MPV 11.8 fL (8.0-11.0); Monocytes % 4.8; Neutrophils % 73.7; Platelet Count 208 10^3/uL (130-400); RBC 4.02 10^6/uL (3.93-5.22); RDW-SD 46.9 fL
[2022-07-10 07:32] LABS: Absolute Lymphocyte Count 2.24 10^3/uL (1.2-3.4); Absolute Neutrophil Count 9.73 10^3/uL (1.2-6.7)
[2022-07-10] MEDS: Diclofenac 1% Gel 100 GM TUBE TP ×4 (07:38→22:28)
[2022-07-10] MEDS: Enoxaparin 40 MG/0.4 ML SYR SC (07:38)
[2022-07-10 07:53] LABS: Anion Gap 8.4 mmol/L (3-11); BUN 8 mg/dL (7-18); CO2 25.6 mmol/L (21.0-32.0); CREATININE 0.8 mg/dL (0.55-1.02); Calcium 8.6 mg/dL (8.5-10.1); Chloride 107 mmol/L (98-107); Estimated GFR 92.54 (mL/min/1.73m2); Glucose 107 mg/dL (74-106); Potassium 3.9 mmol/L (3.5-5.1); Sodium 141 mmol/L (136-145)
[2022-07-10 08:05] VITALS: BP 122/81; PULSE 96; RESP 18; TEMP 37.7; O2SAT 96
[2022-07-10 11:27] LABS: Lab Add On Test DONE
[2022-07-10 11:30] VITALS: BP 136/90; PULSE 84; RESP 18; TEMP 37.5; O2SAT 97
[2022-07-10 11:58] LABS: C-Reactive Protein 13.14 mg/dL (0.0-0.3)
[2022-07-10] MEDS: Acetaminophen 325 MG TAB 650 MG PO (13:44)
[2022-07-10 15:15] VITALS: BP 146/72; PULSE 81; RESP 16; TEMP 37.1; O2SAT 96
[2022-07-10] MEDS: Fluconazole 150 MG TAB PO (15:59)
--- NOTE | 2022-07-10 17:50 | W.PM.PROGNOT ---
Date of Service Date of service: 07/10/22 Time of Service: 17:50 Assessment and Plan Assessment and plan (1) Cellulitis: Status: Acute Assessment and plan: continue zosyn day 3 no further fevers, feels better, no erythema or worsening symptoms (2) Abscess of labia majora: Status: Acute Assessment and plan: s/p I&D, cultures pending We will continue sitz bath's. discussed with DR Ferrera. Subjective Subjective Patient reports: no new complaints, feels better, tolerating liquids well, tolerating a regular diet and afebrile Exam Const General: cooperative, comfortable and no acute distress Orientation: alert and oriented x3 Eyes Pupils: PERRL Resp Effort & Inspection: normal respiratory effort Cardio Rhythm: regular rhythm Skin Lesions: lesion noted (left inguinal I&D site, no surrounding erythema, small amount dried blood) Rashes: no rashes Neuro General: patient alert and patient oriented x3 Objective Last Vital Signs Temp 37.1 C 07/10/22 15:15 Pulse 81 07/10/22 15:15 Resp 16 07/10/22 15:15 BP 146/72 H 07/10/22 15:15 Pulse Ox 96 07/10/22 15:15 Laboratory Results - last 24 hr 07/10/22 07/10/22 07/10/22 06:40 06:40 06:40 WBC 13.20 H RBC 4.02 Hgb 12.0 Hct 36.5 MCV 91 MCH 29.9 MCHC 32.9 RDW 14.0 Plt Count 208 MPV 11.8 H Immature Gran % 0.9 Neutrophils % 73.7 Lymphocytes % 17.0 Monocytes % 4.8 Eosinophils % 3.3 Basophils % 0.3 Nucleated RBC % 0.0 Absolute Neutrophils 9.73 H Absolute Lymphocytes 2.24 Absolute Monocytes 0.63 Absolute Eosinophils 0.44 Absolute Basophils 0.04 Sodium 141 Potassium 3.9 Chloride 107 Carbon Dioxide 25.6 Anion Gap 8.4 BUN 8 Creatinine 0.8 Est GFR (CKD-EPI 2020) 92.54 Glucose 107 H Calcium 8.6 C-Reactive Protein Add-On Test Request DONE 07/10/22 06:40 WBC RBC Hgb Hct MCV MCH MCHC RDW Plt Count MPV Immature Gran % Neutrophils % Lymphocytes % Monocytes % Eosinophils % Basophils % Nucleated RBC % Absolute Neutrophils Absolute Lymphocytes Absolute Monocytes Absolute Eosinophils Absolute Basophils Sodium Potassium Chloride Carbon Dioxide Anion Gap BUN Creatinine Est GFR (CKD-EPI 2020) Glucose Calcium C-Reactive Protein 13.14 H Add-On Test Request
[2022-07-10 19:49] VITALS: BP 113/73; PULSE 88; RESP 18; TEMP 37.1; O2SAT 97
[2022-07-10] MEDS: Melatonin 3 MG TAB 9 MG PO (22:27)
[2022-07-10] MEDS: Montelukast 10 MG TAB PO (22:27)
[2022-07-10 23:09] VITALS: BP 119/72; PULSE 88; RESP 19; TEMP 36.6; O2SAT 97
[2022-07-11 03:26] VITALS: BP 114/75; PULSE 86; RESP 19; TEMP 37.1; O2SAT 96
[2022-07-11 06:25] VITALS: BP 127/69; PULSE 82; RESP 18; TEMP 37.1; O2SAT 96
[2022-07-11] MEDS: PIPERACILLIN/TAZO 3.375 GM in Normal Saline 50 ML IVPB ×2 (06:42→12:22)
[2022-07-11] MEDS: Ipratropium 0.5 MG/2.5 ML UPD VIAL 0.25 MG UPD ×2 (06:43→12:58)
[2022-07-11] MEDS: Acetaminophen 325 MG TAB 650 MG PO (08:58)
[2022-07-11] MEDS: Enoxaparin 40 MG/0.4 ML SYR SC (08:59)
[2022-07-11] MEDS: Diclofenac 1% Gel 100 GM TUBE TP ×2 (08:59→12:28)
[2022-07-11] MEDS: Normal Saline Flush 10 ML SYR IVP ×2 (08:59→12:22)
[2022-07-11 10:19] LABS: Abs Immature Grans 0.13 10^3/uL (0.0-0.06); Absolute Basophil Count 0.06 10^3/uL (0.0-0.2); Absolute Eosinophil Count 0.52 10^3/uL (0.0-0.7); Absolute Monocyte Count 0.68 10^3/uL (0.1-0.8); Absolute Neutrophil Count 8.97 10^3/uL (1.2-6.7); Basophils % 0.4; Eosinophils % 3.5; HCT 37.2 % (36.0-46.0); Immature Grans % 0.9; Lymphocytes % 29.9; MCHC 32.3 % (32.0-36.0); MCV 90 fL (80-95); Monocytes % 4.6; Neutrophils % 60.7; Platelet Count 240 10^3/uL (130-400); RBC 4.14 10^6/uL (3.93-5.22); RDW 13.7 % (11.7-14.6); RDW-SD 44.9 fL; WBC 14.77 10^3/uL (4.4-10.8)
[2022-07-11 10:25] LABS: Absolute Lymphocyte Count 4.42 10^3/uL (1.2-3.4)
[2022-07-11 10:31] LABS: Anion Gap 6.3 mmol/L (3-11); BUN 8 mg/dL (7-18); C-Reactive Protein 8.84 mg/dL (0.0-0.3); CO2 26.7 mmol/L (21.0-32.0); CREATININE 1.1 mg/dL (0.55-1.02); Calcium 8.8 mg/dL (8.5-10.1); Chloride 106 mmol/L (98-107); Estimated GFR 63.15 (mL/min/1.73m2); Glucose 111 mg/dL (74-106); Potassium 3.7 mmol/L (3.5-5.1); Sodium 139 mmol/L (136-145)
[2022-07-11 11:41] VITALS: BP 108/64; PULSE 77; RESP 18; TEMP 36.5; O2SAT 93
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
== END 2022-07-11 13:57 | disposition home or self-care (01) ==
LOC: ER 22:58 → MS 23:00
PROVIDERS: Internal Medicine; Nurse Practitioner Acute Care; Admitting Provider Family Medicine; Emergency Provider Physician Assistant; PCP Nurse Practitioner Family; Visit Provider Family Medicine
DX: N76.4 Abscess of vulva (principal); N76.2 Acute vulvitis; R11.2 Nausea with vomiting, unspecified; R05.3 Chronic cough; J45.909 Unspecified asthma, uncomplicated; E78.5 Hyperlipidemia, unspecified; E66.9 Obesity, unspecified; Z68.41 Body mass index [BMI] 40.0-44.9, adult; K21.9 Gastro-esophageal reflux disease without esophagitis; Z79.899 Other long term (current) drug therapy; Z23 Encounter for immunization; Z20.822 Contact with and (suspected) exposure to COVID-19
CPT/HCPCS: 36415; 80048; 80053; 84145; 87040; 87637; 90471; 90686; 93005; 96361; 96365; 96366; 96372; 96374; 96375; 96376; 99285; J1650; 71045; 74177; 81003; 83605; 85025; 86140; 87070; 87205; 93010; 94640; 99217; 99220; 99225; G0378; J2405; J2543; J3010; J3490; J7613; J7644

== ENCOUNTER → 2022-07-27 02:53 | Outpatient (CLI) | payer MEDICAID, SELFPAY ==
--- NOTE | 2022-07-27 07:15 | DI.MRI_ITS ---
Exam(s) MR LOWER JOINT RT WO EXAM: MR LOWER JOINT RT WO CLINICAL HISTORY: SURGICAL PLANNING,PATELLOFEMORAL SYNDROME,CHONDROMALACIA,M22.2X1,M22.41. TECHNIQUE: Multiplanar multisequence MRI was performed. COMPARISON: MR MR LOWER JOINT RT WO from 02/03/2021 FINDINGS: The examination is limited due to patient motion artifact. BONES: There is no fracture or contusion pattern. JOINTS: There is thinning of the articular cartilage overlying both patellar facets. There is subcho ndral edema seen in both the medial and lateral patellar facets. There is a small joint effusion. TENDONS: Extensor mechanism: Unremarkable. Medial retinaculum: Unremarkable. Lateral retinaculum: Unremarkable. Popliteus: Unremarkable. MUSCLES: Unremarkable. MENISCI: The medial meniscus is unremarkable. The lateral meniscus is unremarkable. SOFT TISSUES: There is edema seen in the soft tissues around the knee. There is edema seen in the pr epatellar soft tissues. LIGAMENTS: Anterior Cruciate: Unremarkable. Posterior Cruciate: Unremarkable. Medial Collateral:Unremarkable. Lateral Collateral: Unremarkable. OTHER: IMPRESSION: 1. Chondromalacia patella. 2. No evidence of a meniscal or ligament tear. DATA REPOSITORY:
== END ==
PROVIDERS: PCP Nurse Practitioner Family; Visit Provider Student in an Organized Health Care Education/Training Program
DX: M22.41 Chondromalacia patellae, right knee
CPT/HCPCS: 73721

== ENCOUNTER 2022-08-10 07:39 | Day surgery (SDC) | payer MEDICAID, SELFPAY ==
[2022-08-10] VITALS (10 sets, daily range): BP systolic 104–131; BP diastolic 51–84; PULSE 60–93; RESP 12–22; TEMP 36.2–37; TEMPC 36.2; O2SAT 95–99; BMI 47.7
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
[2022-08-10] MEDS: Gabapentin 300 MG CAP PO (08:29)
[2022-08-10] MEDS: Acetaminophen 500 MG TAB 1000 MG PO (08:29)
[2022-08-10] MEDS: Lactated Ringers 1,000 ML 80 ML IV (08:50)
--- NOTE | 2022-08-10 09:07 | W.ANESPRE ---
General Info Date of Service Date Performed: 08/10/22 Height: 5 ft 2 in Weight: 118.5 kg Body Mass Index (BMI): 47.7 Surgical Procedure: Operation Date: 08/10/22 10:00 Proposed Procedure Side Surgeon p Knee Patellofemoral Replacement Right Cristofer Falcon MD Meds Allergies and Home Medications Allergies Allergy/AdvReac Type Severity Reaction Status Date / Time Sulfa (Sulfonamide Allergy Intermediate HIVES Verified 08/10/22 08:09 Antibiotics) tramadol AdvReac Severe DIARRHEA Verified 08/10/22 08:09 indomethacin AdvReac Intermediate vomiting/di Verified 08/10/22 08:09 arrhea morphine AdvReac Mild LOCAL Verified 08/10/22 08:09 ITCHING Home Medication Medication Instructions Recorded montelukast 10 mg tablet 10 mg PO QHS #90 tabs 10/16/21 (Singulair) nebulizers ([employer] Go Nebulizer) #1 ea 10/21/21 inhalational spacing device #10 ea 10/23/21 (Aerochamber MV spacer) diclofenac sodium 1 % topical gel 4 g topical QID #100 grams 12/18/21 (Voltaren Arthritis Pain) fluticasone propionate 50 2 spray intranasal DAILY PRN 12/18/21 mcg/actuation nasal allergy symptoms #16 grams spray,suspension (Flonase Allergy Relief) clotrimazole 1 % topical cream 1 applic topical BID #45 grams 04/15/22 lidocaine 5 % topical patch 1 patch topical DAILY PRN pain #30 05/14/22 ea albuterol sulfate 2.5 mg/3 mL 2.5 mg (3 mL) inhalation Q6H PRN 06/21/22 (0.083 %) solution for nebulization shortness of breath or wheezing #90 mL ipratropium 0.5 mg-albuterol 3 mg 3 ml inhalation Q20M PRN shortness 06/24/22 (2.5 mg base)/3 mL nebulization of breath or wheezing #180 mL soln albuterol sulfate 90 mcg/actuation 2 puff inhalation Q6H PRN 06/28/22 aerosol inhaler shortness of breath or wheezing #17 grams ipratropium 20 mcg-albuterol 100 1 puff inhalation Q6H PRN dyspnea 07/20/22 mcg/actuation mist for inhalation #4 grams (Combivent Respimat) metformin 500 mg tablet,extended 500 mg PO QPM #30 tabs 07/20/22 release 24 hr estradiol 1 mg tablet 1 mg PO DAILY #30 tabs 07/28/22 acetaminophen 500 mg tablet 500 mg PO Q6H PRN pain #60 tabs 08/10/22 aspirin 81 mg tablet,delayed 81 mg PO BID 30 days #60 tabs 08/10/22 release dexamethasone 4 mg tablet 4 mg PO DAILY #2 tabs 08/10/22 docusate sodium 100 mg capsule 100 mg PO BID #30 caps 08/10/22 (Colace) gabapentin 300 mg capsule 300 mg PO QHS #14 caps 08/10/22 meloxicam 15 mg tablet 15 mg PO DAILY #30 tabs 08/10/22 oxycodone 5 mg tablet 5 mg PO Q4H PRN severe 08/10/22 post-operative pain #18 tabs pantoprazole 40 mg tablet,delayed 40 mg PO DAILY #14 tabs 08/10/22 release Current Visit Medications: Current Medications Generic Name Dose Route Start Last Admin Trade Name Freq PRN Reason Stop Dose Admin Acetaminophen 1,000 mg 08/10/22 06:00 08/10/22 08:29 Acetaminophen 500 Mg Tab PO 08/10/22 16:00 1,000 mg PREOP CHRISTINA Administration Acetaminophen 1,000 mg 08/10/22 08:30 Acetaminophen 500 Mg Tab PO TID CHRISTINA Aspirin 81 mg 08/10/22 08:30 Aspirin E.C. 81 Mg Tabec PO BID CHRISTINA Celecoxib 400 mg 08/10/22 06:00 Celecoxib 200 Mg Cap PO 08/10/22 16:00 PREOP CHRISTINA Dexamethasone 4 mg 08/10/22 08:30 Dexamethasone 4 Mg Tab PO 08/11/22 08:31 DAILY CHRISTINA Docusate Sodium 100 mg 08/10/22 07:22 Docusate Sodium 100 Mg Cap PO BID PRN PRN Constipation Gabapentin 300 mg 08/10/22 06:00 08/10/22 08:29 Gabapentin 300 Mg Cap PO 08/10/22 16:00 300 mg PREOP CHRISTINA Administration Gabapentin 300 mg 08/10/22 22:00 Gabapentin 300 Mg Cap PO HS CHRISTINA Hydromorphone HCl 0.5 mg 08/10/22 07:22 Hydromorphone 2 Mg/Ml Syr IVP Q2H PRN PRN Tranexamic Acid 1,000 mg/ 60 mls @ 360 mls/hr 08/10/22 06:00 Sodium Chloride IVPB 08/10/22 16:00 PREOP CHRISTINA Cefazolin Sodium 3,000 mg/ 100 mls @ 200 mls/hr 08/10/22 06:00 Sodium Chloride IVPB 08/10/22 16:00 PREOP CHRISTINA Ringer's Solution 1,000 mls @ 80 mls/hr 08/10/22 06:00 08/10/22 08:50 IV 09/08/22 23:59 80 mls/hr [facility] Administration Cefazolin Sodium/Dextrose 1 gm in 50 mls @ 100 mls/hr 08/10/22 08:00 Ancef Duplex IVPB 08/11/22 00:29 Q8H CHRISTINA IV Miscellaneous Supplies 1 each 08/10/22 06:00 Iv Access IV 09/08/22 23:59 DIRECTED CHRISTINA Meloxicam 15 mg 08/10/22 08:30 Meloxicam 15 Mg Tab PO DAILY CHRISTINA Oxycodone HCl 0 mg 08/10/22 07:22 Oxycodone 5 Mg Tab PO Q3H PRN PRN Pain Pantoprazole Sodium 40 mg 08/10/22 07:30 Pantoprazole 40 Mg Tabcr PO DAILY@0730 [facility] Polyethylene Glycol 17 gm 08/10/22 07:22 Polyethylene Glycol 3350 17 Gm Packet PO BID PRN PRN Constipation Sodium Chloride 0 ml 08/10/22 06:00 Normal Saline Flush 10 Ml Syr IV 09/08/22 23:59 PRN PRN Sodium Chloride 0 ml 08/10/22 06:00 Normal Saline 10 Ml Vial IJ 09/08/22 23:59 DIRECTED PRN Sterile Water 0 ml 08/10/22 06:00 Water,Injection,Sterile 10 Ml Vial IJ 09/08/22 23:59 DIRECTED PRN PFSH Active Problems Active Problems: Problem Status Onset Code Atopic dermatitis L20.9 Hyperlipidemia E78.5 Internal derangement of right knee M23.91 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 GERD (gastroesophageal reflux disease) Hidradenitis suppurativa History of asthma Premature surgical menopause Surgical History Surgical History H/O section 1996 and 1998 History of hernia surgery History of hysterectomy with unilateral oophorectomy (~1998) Done for bleeding issues, ?CIN3 S/P appendectomy S/P left oophorectomy (~2004) S/P right knee arthroscopy Tobacco Smoking/Tobacco Use Status: Former Tobacco Use Passive smoking exposure: Yes Second hand exposure: Yes Alcohol Alcohol Intake: never Substance Use Substance use: Never Substance use type: does not use Prental History History 2 Para 2 Hx # Term Pregnancies Multiple births Hx # Pregnancies Ectopic pregnancies AB induced Hx Number of Living Children AB spontaneous Past Pregnancies Del. Date GA/Weeks # Preg Succ Route Wgt Sex Labor Lgth Anesthesia Location Prov Complic 08/03/97 No Yes 3175.[address] [facility] 09/19/[address] [facility] Delivery Date: 08/03/97 Last Updated by: Elizabeth Alvarado Delivery Date: 09/19/98 Last Updated by: Elizabeth Rodriguez Vital Signs and Lab Results Vital Signs Most Recent Vital Signs in EMR: Most Recent Vital Signs Temp Pulse Resp BP Pulse Ox 37.0 C 93 H 16 124/77 96 08/10/22 08:18 08/10/22 08:18 08/10/22 08:18 08/10/22 08:18 08/10/22 08:18 Lab Results Blood Type / Crossmatch: No Data to Display Complete Blood Count: White Blood Count 14.77 10^3/uL (4.4-10.8) H 07/11/22 10:05 Red Blood Count 4.14 10^6/uL (3.93-5.22) 07/11/22 10:05 Hemoglobin 12.0 g/dL (11.2-15.7) 07/11/22 10:05 Hematocrit 37.2 % (36.0-46.0) 07/11/22 10:05 Platelet Count 240 10^3/uL (130-400) 07/11/22 10:05 Complete Metabolic Panel: Sodium 139 mmol/L (136-145) 11/13/22 10:05 Potassium 3.7 mmol/L (3.5-5.1) 07/11/22 10:05 Chloride 106 mmol/L (98-107) 07/11/22 10:05 Carbon Dioxide 26.7 mmol/L (21.0-32.0) 07/11/22 10:05 BUN 8 mg/dL (7-18) 07/11/22 10:05 Creatinine 1.1 mg/dL (0.55-1.02) H 07/11/22 10:05 Est GFR (CKD-EPI 2020) 63.15 (mL/min/1.73m2) 07/11/22 10:05 Calcium 8.8 mg/dL (8.5-10.1) 07/11/22 10:05 Glucose 111 mg/dL (74-106) H 07/11/22 10:05 C-Reactive Protein 8.84 mg/dL (0.0-0.3) H 07/11/22 10:05 Liver Function Panel: No Data to Display Coagulation Panel: No Data to Display Cardiac Panel: No Data to Display Arterial Blood Gas: No Data to Display Venous Blood Gas: No Data to Display Pancreas Panel: No Data to Display Thyroid Panel: No Data to Display Infectious Disease: No Data to Display Blood Cultures: No Data to Display Toxicology Panel: No Data to Display Panel: No Data to Display Anesthesia Assessment and Plan Anesthesia History Personal History: No History of Anesthesia Complications Family History: No Family History of Anesthesia Complications Exercise Tolerance Exercise Tolerance: Metabolic Equivalents>4 Pertinent Negatives Pertinent Negatives: No Symptoms of GERD Cardiac & Pulmonary Exam Cardiac Exam: Normal S1/S2 Heart Sounds Pulmonary Exam: Clear Bilateral Breath Sounds Implantable Cardiac Device Does patient have a Pacemaker or an ICD?: No Airway Exam Known Difficult Airway: No Mallampati Class: 2 Mouth Opening: Normal (> 3cm) Thyromental Distance: Greater than 3 cm Neck Range of Motion: Full ROM Neck Circumference: Normal Teeth Condition: Removable Dentures/Plates Upper ASA Classification ASA Score: ASA 3 Emergency Case?: No NPO Status NPO Status: NPO Clears >2 hours, Solids >8 hours Status Status: History of Hysterectomy Anesthesia Plan Resuscitation Status: Full Code Anesthesia Technique: Spinal Anesthesia Airway Planned: Natural Airway Pain Management: Surgeon and patient request nerve block Monitors Used: Standard Monitors
[2022-08-10] MEDS: ceFAZolin 3,000 MG in Normal Saline 100 ML 200 MG IVPB (09:34)
--- NOTE | 2022-08-10 10:16 | W.ANESNERVE ---
Nerve Block Single Injection Procedure Date and Time Date Performed: 08/10/22 Procedure Start: 09:20 Location Where Procedure Performed Procedure Location: Day Surgery Unit Reason Performed: Postoperative Analgesia Requesting Provider: Cristofer Falcon Timeout Performed Timeout Performed: Yes Monitoring Used ECG, Blood Pressure, SpO2 and See EMR for corresponding vital signs Sterility Sterility: Hand Hygiene, Surgical Cap, Surgical Mask, Sterile Gloves and Chlorhexidine Sedation Given During Procedure Sedation Given (Indicate Dose Given): No Sedation given Patient Mental Status Patient Mental Status: Awake Nerve Block 1st Nerve Block: Laterality: Right Block Type: Adductor Canal Needle / Catheter Used: 100mm SonoPlex II Local Anesthetic Bolus (Indicate Dose Given): Lidocaine used for local infiltration of skin, Injected in 3-5ml increments after negative blood aspiration and Bupivacaine 0.25% Dose:: 20ml Additives (Indicate Dose Given): None Ultrasound: Sterile probe cover and gel used Ultrasound Image Saved?: Yes Nerve Stimulator: Not Used Paresthesia: None Procedure Tolerated: No Complications and Patient tolerated well Procedure Outcome: Successful Performed By: Ron Connors
--- NOTE | 2022-08-10 11:36 | ROE_ITS ---
Date of service: 08/10/22 Time of Service: 11:37 Operative Note Operative Note DATE OF PROCEDURE: 08/10/22 PRE-OP DIAGNOSIS: Right Patellofemoral Chondromalacia POST-OP DIAGNOSIS: same PROCEDURE: Right Patlleofemoral Replacement SURGEON: Cristofer Falcon METAL RECLAMATION KETTLE TENDER: Tonya Rojas Refer to Anesthesia Record ESTIMATED BLOOD LOSS: 100 PATHOLOGY: none sent TOURNIQUET TIME: 0 COMPLICATIONS: None Patient was transported to: PACU Patient's condition: stable Implants: 1. Arthrosurface Wave Trochlear Component, 8.5x4mm 2. Depuy Attune Patellar Button, 32mm Indications: Juany is a 47 year old female who has had symptoms of right patellofemoral arthritis. Conservative measures have been exhausted yet pain and dysfunction persisted. Please see office notes for complete details. Given the continued symptoms, I recommended a patellofemoral replacement. I reviewed the risks of the procedure to include bleeding, infection, pain, stiffness, worsening medial or lateral compartment arthritis, patellar instability, loosening, fracture, clot. Despite these risks, Juany elected to proceed. Findings: There was notable arthritic change within the patellofemoral compartment, mostly on the patella. There was some mild Grade I/II chondromalacia of the central aspect of the distal, medial femur. The remainder of the knee did not show any extensive cartilage wear. Procedure Description: Juany was greeted in the preoperative holding area where the correct side was identified and marked. The consent was reviewed with the patient and signed. The history and physical was updated. All questions were answered. Preoperative mediacations were administered: Acetaminophen 1000mg and Gabapentin 300mg. An adductor canal block was then administered by the anesthesia team in the PACU. She was taken back to the operating room. A spinal anesthestic was then administered. The patient was placed into the supine position on the operating room table. A nonsterile tourniquet was placed high onto the leg but not used. Posts were placed for positioning during the procedure. All bony prominences were well padded. Prophylactic antibiotics in the form of Cefazolin were admini stered. 1g of Tranxemic Acid was given intravenously within 30 minutes of incision. The right leg was then prepped with Chloraprep and draped in a standard fashion with impervious stockinette and extremity drape. A second prep with Chloraprep was performed prior to placing Ioband. A timeout to confirm correct identity, side and site, procedure, allergies, anesthesia, and medical concerns was performed. With the knee in some flexion, a midline incision was made overlying the knee. Full thickness skin flaps were raised once the extensor mechanism was encountered. These were raised medially and laterally. Any bleeding was controlled with electrocautery. Once the extensor mechanism was fully exposed, a medial parapatellar arthrotomy was performed in a flexed position. All bleeding from the arthrotomy and the geniculate arteries was coagulated. The menisci and intrameniscal ligament was preserved. The remainder of the knee was inspected. The patella had Grade III/IV cartilage changes on both medial and lateral facets. Therw was also some Grade I/II chondromalacia of the central aspect of the medial, distal femur. Otherwise, no significant wear noted. The knee was held in extension and the patella was measured as 22 mm. Using the patellar clamp and cut guide, this was resected to a flat surface with at least 13mm of thickness remaining. The size 32 patella fit the best. This was oriented and then clamped into position. The lugs were drilled. The Arthrosurface patellofemoral trial was then placed in the appropriate position and a single guidewire was placed through the center of this device. This was confirmed to be in appropriate location using the targeting arm. The trochlea was then sized in both directions corresponding to an 8.5 x 4. The initial reamer was then placed and taken down to appropriate depth. The reaming and drill guide was then placed within this recess and secured with pins. Using both the centralized reamer and the edge reamer, the trochlear recess was prepared. The guide was removed and the edges were curetted for completeness. The central hole was then prepared with a drill and a tap. The outer surface screw was then inserted to the premeasured depth. The 8.5x4mm patellofemoral Wave trochlear component by Arthrosurface was then malleted into position sitting flush over the lateral and proximal lateral aspect. High viscosity cement was prepared on the back table under vacuum preparation. When ready, cement was manually impacted into the cut surface of the patella and the patellar button was clamped into position and held. During this process attention was turned to the gutters of the knee and for all interfaces for any excess cement. While the cement was hardening, the knee was irrigated with Irrisept chlorhexadine solution. It was allowed to sit in the knee for 3 minutes. After the cement had finally cured, approximately 15min, the clamp was removed from the patella and the knee was taken through range of motion. The capsule was then reapproximated with a No. 1 Vicryl. Deep tissues were then reapproximated with 0 Vicryl and 2-0 Vicryl. The skin was closed with a running 3-0 Monocryl in a subcuticular fashion. This was reinforced with skin glue. A Mepilex silver dressing was applied along with a [id number] CLEMENTINA wrap. A CryoCuff was applied. Juany was transferred to the hospital bed without difficulty an suffering no apparent complication. Juany has a good prognosis. Physical therapy will start today and without restrictions, weight-bearing as tolerated. Aspirin 81mg BID will be used for DVT prophylaxis.
[2022-08-10] MEDS: fentaNYL 100 MCG/2 ML VIAL IVP (12:02)
--- NOTE | 2022-08-10 12:28 | W.ANESPOSTOP ---
Postoperative Evaluation Date, Time and Location Date Performed: 08/10/22 Time Performed: 12:38 Patient Location: Day Surgery Unit Vital Signs Most Recent Imported Vital Signs: Most Recent Vital Signs Temp Pulse Resp BP Pulse Ox 36.6 C 65 14 119/51 L 97 08/10/22 11:55 08/10/22 12:10 08/10/22 12:10 08/10/22 12:10 08/10/22 12:10 Most Recent Manually Entered Vital Signs: Adult Blood Pressure: 126/84 Heart Rate: 60 Respirations: 12 Oxygen Saturation (%): 97 Temperature (C): 36.2 C Pain Score (0-10 Scale): 0 Pain Score Most Recent Pain Score: Most Recent Pain Score Pain Level 0 08/10/22 12:10 Assessment Mental Status: Awake (Alert & Oriented to Patient Baseline) Airway and Respiratory Function: Patent airway with normal (patient baseline) respiratory exam Cardiovascular Function: Hemodynamically Stable Hydration Status: Adequately Hydrated Nausea & Vomiting: No Nausea or Vomiting Pain: Pt. Denies Any Pain Peripheral Nerve Block: Regional nerve block not resolved at time of post operative discharge
--- NOTE | 2022-08-10 13:49 | IN_ITS ---
PT Notes Visit Reasons: Right patella chondromalacia Inpatient Physical Therapy Evaluation Date: 08/10/2022 Referring Doctor: Cristofer Falcon MD PT Orders: PT CONSULT: Status post right patellofemoral arthroplasty Precautions: Falls Patient Profile/Admitting Diagnosis: 47-year-old female with chondromalacia patella who underwent a right patellofemoral arthroplasty earlier today PMHX: edical History?(Updated 07/28/22 @ 09:09 by Lolis Tyson MD) COVID-19 virus infection (09/2021) Former cigarette smoker Quit Mar 2022!GERD (gastroesophageal reflux disease) Hidradenitis suppurativa Premature surgical menopause Surgical History?(Updated 07/28/22 @ 09:09 by Lolis Tyson MD) H/O section 1996 and 1998History of hernia surgery History of hysterectomy with unilateral oophorectomy (~1998) Done for bleeding issues, ?CIN3S/P appendectomy S/P left oophorectomy (~2004) S/P right knee arthroscopy Social History/Home Situation: Lives in a one-story house with assistance, with 4 steps entering the home which has a railing. She has a combo tub shower with grab bars and generally does not have difficulty getting in and out. Current Functional Limitations: None mentioned Equipment Owned/DME: Being sent home with a FWW Subjective: Anxious to return home with no complaints of nausea or lightheadedness Objective: General Observation: Pleasant, cooperative and no abnormal pain behavior noted. Resting comfortably in bed Mental Status: Alert and oriented x3 Pain: No complaints of pain offered Vital Signs: Her resting pulse was 76 bpm and regular ROM: Her upper extremity and left lower extremity articular structures good functional range of motion. Her right knee motion is 0 to approximately 60 degrees when sitting on the edge of the bed. Strength: Has full motor control throughout and her strength is generally rated 5/5 other than her right quads at 3/5. Sensation: Intact to light touch throughout the entire right lower extremity Bed Mobility/Transfers: Independent with assuming the supine to sitting to standing positions and vice versa Gait: She ambulated approximately 100 feet with an FW W and minimal contact guarding, weightbearing as tolerated right lower extremity. She has mild antalgia on the right but no complaints of weakness or buckling. She descended and descended couple steps with proper technique and stability while using the railing Balance: [] Static Sitting: Stable Dynamic Sitting: Stable Static Standing: Stable Dynamic Standing: Stable with wheeled walker Special Tests: Informed Consent/Education: Patient instructed in purpose of PT consult and plan of care. Assessment: Patient is a 47 year old female referred to physical therapy services with the diagnosis of chondromalacia patella right knee, status post right patellofemoral arthroplasty. Patient presents with clinical signs and symptoms consistent with diagnosis, as demonstrated by the following impairment level findings: Limited range of motion of the right knee along with right lower extremity weakness and gait abnormality.. Patient is assessed as a Low 54939 complexity based on the following: History: See comorbidities and social history Examination: See above for functional limitations and impairments Presentation: Stable Decision Making: Low complexity based on her clinical findings Goals: Independent home exercise program of activating and normalizing quad and gluteal function along with knee flexion greater than 90 degrees Plan of Care/Treatment Plan: Today session consisted of assessing patient's bed mobility, instructed in gait training with a FWW weightbearing as tolerated, along with stair climbing and issuing her written and illustrated home exercise program consisting of quad and gluteal sets, ankle pumping and supine straight leg raises. DISCHARGE RECOMMENDATIONS: Home with no services As a follow-up appointment with Dr. Falcon in approximately 2 weeks, he will determine whether the patient needs further physical therapy at that time. TREATMENT CODE/TIME: [id number]/[id number] Disclaimer: This note was created using [employer] voice recognition software. It was reviewed for major content. However, there may be multiple small discrepancies and errors due to the voice recognition aspects of the software.
== END 2022-08-10 14:15 | disposition home or self-care (01) ==
PROVIDERS: PCP Nurse Practitioner Family; Visit Provider Student in an Organized Health Care Education/Training Program
PROC: (CPT 27437; principal; 2022-08-10 09:30)
DX: M17.11 Unilateral primary osteoarthritis, right knee (principal); M94.261 Chondromalacia, right knee; E66.9 Obesity, unspecified; J45.909 Unspecified asthma, uncomplicated; Z68.42 Body mass index [BMI] 45.0-49.9, adult
CPT/HCPCS: 27446; 97110; 97162; J0690; J1100; J2250; J2405; J3010

== ENCOUNTER 2022-08-24 10:27 | Outpatient (CLI) | payer MEDICAID, SELFPAY ==
--- NOTE | 2022-08-24 10:00 | DI.RAD_ITS ---
Exam(s) XR KNEE RT 3V AP,LAT,FELICIA EXAM: XR KNEE RT 3V AP,LAT,FELICIA CLINICAL HISTORY: right knee f/u. TECHNIQUE: 2D digital imaging was performed. COMPARISON: CR XR KNEE RT 3V AP,LAT,FELICIA from 07/02/2022 FINDINGS: 3 views Is no patellofemoral prosthesis as well as resurfacing the posterior aspect patella. Prosthesis is i n good position no loosening and no radiographic evidence of osteomyelitis. IMPRESSION: DATA REPOSITORY: RADIATION DOSE DELIVERED:
== END 2022-08-24 10:28 | disposition home or self-care (01) ==
LOC: DIORS 10:28
PROVIDERS: PCP Nurse Practitioner Family; Referring Provider Nurse Practitioner Family; Visit Provider Physician Assistant
DX: M22.2X1 Patellofemoral disorders, right knee (principal); Z96.651 Presence of right artificial knee joint
CPT/HCPCS: 73562

== ENCOUNTER 2022-11-11 11:18 | Outpatient (CLI) | payer MEDICAID, SELFPAY ==
--- NOTE | 2022-11-11 10:45 | DI.RAD_ITS ---
Exam(s) XR KNEE RT 3V AP,LAT,FELICIA EXAM: XR KNEE RT 3V AP,LAT,FELICIA CLINICAL HISTORY: Right knee pain. TECHNIQUE: 2D digital imaging was performed. Three views. COMPARISON: CR XR KNEE RT 3V AP,LAT,FELICIA from 08/24/2022 FINDINGS: BONES: No acute fracture is present. No bony destructive lesion is seen. JOINTS: No change in patellofemoral joint prosthesis. Femoral tibial joints are maintained. Minimal periarticular spurring. The knee is normally aligned. No joint effusion is seen. SOFT TISSUE: Normal. IMPRESSION: Stable appearance of patellofemoral prosthesis DATA REPOSITORY: RADIATION DOSE DELIVERED:
== END 2022-11-11 11:19 | disposition home or self-care (01) ==
LOC: DIORS 11:18
PROVIDERS: PCP Nurse Practitioner Family; Referring Provider Nurse Practitioner Family; Visit Provider Physician Assistant
DX: Z96.651 Presence of right artificial knee joint (principal); Z47.1 Aftercare following joint replacement surgery
CPT/HCPCS: 73562

== ENCOUNTER 2023-02-16 02:52 | Outpatient (CLI) | payer MEDICAID, SELFPAY ==
[2023-02-16 12:44] LABS: Anion Gap 8.6 mmol/L (3-11); BUN 15 mg/dL (7-18); CO2 26.4 mmol/L (21.0-32.0); CREATININE 0.9 mg/dL (0.55-1.02); Calcium 9.2 mg/dL (8.5-10.1); Calculated LDL 132 mg/dL (<100); Chloride 107 mmol/L (98-107); Cholesterol 209 mg/dL (<200); Estimated GFR 80.34 (mL/min/1.73m2); Glucose 107 mg/dL (74-106); HDL Cholesterol 63 mg/dL (40-60); Potassium 4.3 mmol/L (3.5-5.1); Sodium 142 mmol/L (136-145); Triglyceride 73 mg/dL (<150)
[2023-02-16 12:48] LABS: Hemoglobin A1C 5.7 % (<5.7)
== END 2023-02-16 02:53 | disposition home or self-care (01) ==
LOC: LOS 02:52
PROVIDERS: PCP Nurse Practitioner Family; Visit Provider Nurse Practitioner Family
DX: E78.5 Hyperlipidemia, unspecified (principal); R73.03 Prediabetes; E66.8 Other obesity; J45.909 Unspecified asthma, uncomplicated
CPT/HCPCS: 36415; 80048; 80061; 83036

== ENCOUNTER 2023-06-07 13:17 | Emergency (ER) | payer MEDICAID, SELFPAY ==
[2023-06-07 13:24] VITALS: BP 129/77; PULSE 94; RESP 16; TEMP 36.6; O2SAT 96
[2023-06-07 13:40] LABS: Bilirubin Negative (Negative); Blood Trace-intact (Negative); Clarity Sl Cloudy (Clear); Glucose Negative (Negative); Ketones Negative (Negative); Leukocyte Esterase Trace (Negative); Nitrite Negative (Negative); Specific Gravity 1.025 (1.005-1.025); Urobilinogen 0.2 mg/dL (Up to 0.2)
[2023-06-07] MEDS: Ketorolac 10 MG TAB PO (13:47)
[2023-06-07] MEDS: Methocarbamol 500 MG TAB 1000 MG PO (13:47)
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
[2023-06-07 13:54] LABS: Bacteria Few HPF (Negative); C & S Indicated? No/Sq. Contamination; Casts Negative LPF (Negative); Crystals Negative HPF (Negative); Epithelial Cells Moderate HPF (Negative); Mucus Negative (Negative); RBC 0-2 HPF (0-2)
[2023-06-07 14:30] VITALS: BP 126/57; PULSE 94; RESP 18; O2SAT 96
== END 2023-06-07 14:31 | disposition home or self-care (01) ==
PROVIDERS: Emergency Provider Emergency Medicine; PCP Nurse Practitioner Family
DX: M54.50 Low back pain, unspecified (principal); R31.9 Hematuria, unspecified; E78.5 Hyperlipidemia, unspecified
CPT/HCPCS: 99283; 81003; 81015

== ENCOUNTER 2023-06-12 10:44 | Emergency (ER) | payer MEDICAID, SELFPAY ==
[2023-06-12 10:47] VITALS: BP 128/71; PULSE 90; RESP 20; TEMP 36.5; O2SAT 95
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
[2023-06-12] MEDS: Ketorolac 15 MG/ML VIAL IM (11:17)
== END 2023-06-12 11:23 | disposition home or self-care (01) ==
PROVIDERS: Emergency Provider Emergency Medicine; PCP Nurse Practitioner Family
DX: M54.32 Sciatica, left side (principal); M54.31 Sciatica, right side
CPT/HCPCS: 99283; 99284; J1885

== ENCOUNTER 2023-06-17 01:00 | Outpatient (CLI) | payer MEDICAID, SELFPAY ==
--- NOTE | 2023-06-17 06:45 | DI.RAD_ITS ---
Exam(s) XR LUMBAR SPINE COMPLETE EXAM: XR LUMBAR SPINE COMPLETE CLINICAL HISTORY: back pain,acute with radiculopathy,m54.10. TECHNIQUE: 2D digital imaging was performed. COMPARISON: No exams were available for comparison FINDINGS: Five views. No evidence of fracture, listhesis, nor pars defects. Disc spaces exhibit normal height. No obvious facet arthropathy. SI joints unremarkable No scoliosis. Bone density normal. IMPRESSION: No significant osseous findings. DATA REPOSITORY: RADIATION DOSE DELIVERED:
== END 2023-06-17 01:20 ==
LOC: DI 01:01
PROVIDERS: PCP Nurse Practitioner Family; Visit Provider Nurse Practitioner Family
DX: M54.50 Low back pain, unspecified
CPT/HCPCS: 72110

== ENCOUNTER → 2023-07-18 02:54 | Outpatient (CLI) | payer MEDICAID, SELFPAY ==
--- NOTE | 2023-07-18 07:00 | DI.MRI_ITS ---
Exam(s) MR LUMBAR SPINE WO EXAM: MR LUMBAR SPINE WO CLINICAL HISTORY: back pain with radiculopathy, disc herniation?, M54.10. TECHNIQUE: Multiplanar multisequence MRI of the Lumbar spine was performed. COMPARISON: CT CT ABDOMEN PELVIS W from 07/08/2022 CR XR LUMBAR SPINE COMPLETE from 06/17/2023 FINDINGS: Bones: The last intervertebral disc space is designated the L5/S1 level for the numbering purpose of this ex amination. The vertebral body heights are well maintained. Alignment: Unremarkable. The marrow signal characteristics are unremarkable. Cord: The conus tip ends at the T12 level. It is of normal size and signal intensity. T12-L1: No focal disc herniation is present. No central spinal canal stenosis.No neural foraminal st enosis. L1-2: No focal disc herniation is present. No central spinal canal stenosis.No neural foraminal sten osis. L2-3: No focal disc herniation is present. No central spinal canal stenosis.No neural foraminal belen nosis. L3-4: No focal disc herniation is present. No central spinal canal stenosis.No neural foraminal belen nosis. L4-5: No focal disc herniation is present. No central spinal canal stenosis.No neural foraminal sten osis. L5-S1: No focal disc herniation is present. No central spinal canal stenosis.No neural foraminal st enosis. The visualized SI joints and sacrum are unremarkable. Soft tissues: The paraspinal soft tissues are unremarkable. On left renal scarring is noted. IMPRESSION: Negative MRI of the lumbar spine. No evidence of disc herniation, neural foraminal narrowing or cent ral canal stenosis. DATA REPOSITORY:
== END ==
PROVIDERS: PCP Nurse Practitioner Family; Visit Provider Nurse Practitioner Family
DX: M54.59 Other low back pain (principal)
CPT/HCPCS: 72148

== ENCOUNTER 2024-04-25 08:30 | Day surgery (SDC) | payer MEDICAID, SELFPAY ==
[2024-04-25 08:43] VITALS: BP 126/86; PULSE 83; RESP 18; TEMP 36.5; O2SAT 97
[2024-04-25] MEDS: Lactated Ringers 1,000 ML 80 ML IV (09:25)
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
--- NOTE | 2024-04-25 09:59 | W.COLOREPORT ---
Date of service: 04/25/24 Time of Service: 09:59 Colonoscopy Report Procedure Description: Procedures performed: 1. Colonoscopy with snare polypectomy 2. Cold forceps polypectomy Preoperative diagnosis: Screening colonoscopy Postoperative diagnosis: Colorectal polyps, poor prep Surgeon: Barry Rizo MD Indication for procedure: The patient is a 49-year-old woman due for her for screening colonoscopy. No symptoms. No family history of colon cancer. Findings: The patient did admit in preop that she ate regular food yesterday. She had poor prep, mostly in the right colon. Tumors and large polyps would not have been missed but medium?size polyps and smaller could have been missed. No diverticular disease. In the sigmoid colon a 2-3 mm sessile polyp was removed with cold forceps technique. In the rectum a 3-5 mm sessile polyp was removed with hot snare technique. A couple other small hyperplastic?appearing polyps are noticed in the rectum. Surveillance interval/follow-up: Considering the poor prep I would recommend repeating another screening in 3 years. She needs to follow instructions and abstain from regular food the day before and possibly consider an extended prep. Specimens: yes Estimated blood loss: Minimal Complications: None Quality of prep: Quite poor, especially in the right?colon. Small and medium?sized polyps could have definitely been missed. Procedure in detail: The patient gave written consent and was in agreement with the indications, the potential risks as well as the benefits of the procedure. They were taken to the endoscopy suite and laid in the left lateral decubitus position. A timeout was performed and anesthesia was administered which was tolerated well. I started the procedure. Digital rectal and visual examination was performed and grossly within normal limits. A well-lubricated flexible colonoscope was then introduced and passed without any notable difficulty all the way to the cecum identified by the ileocecal valve and the appendiceal orifice. The scope was then slowly withdrawn with the above-noted findings. The patient tolerated the procedure well and was taken to the PACU in hemodynamically stable condition.
--- NOTE | 2024-04-25 09:59 | W.PM.DSUDISC ---
Date of service: 04/25/24 Time of Service: 09:59 Discharge Plan Disposition Patient Disposition: Home Discharge Details Attending Provider: Reilly Rizo Primary Care Provider: Chrissy Sampson Home Meds and New Rx's Prescriptions: No Action budesonide-formoterol [Symbicort] 160-4.5 mcg/actuation HFA aerosol inhaler 1 inh inhalation BID Qty: 10.2 0RF Rx Instructions: 1 puffs twice a day and may take 1 puff every 4-6hrs as needed for acute shortness of breath; max 12 inhalations/day montelukast [Singulair] 10 mg tablet 10 mg PO QHS Qty: 90 3RF diclofenac sodium [Voltaren Arthritis Pain] 1 % gel 4 g topical QID Qty: 100 3RF Rx Instructions: apply to single knee, ankle, foot; for foot includes sole/toes/top of foot ipratropium-albuterol 0.5 mg-3 mg(2.5 mg base)/3 mL solution for nebulization 3 ml inhalation Q20M PRN (Reason: shortness of breath or wheezing) Qty: 180 3RF Rx Instructions: for 3 doses albuterol sulfate 2.5 mg /3 mL (0.083 %) solution for nebulization 2.5 mg inhalation Q6H PRN (Reason: shortness of breath or wheezing) Qty: 90 4RF fluticasone propionate [Flonase Allergy Relief] 50 mcg/actuation spray,suspension 2 spray intranasal DAILY PRN (Reason: allergy symptoms) Qty: 16 4RF Rx Instructions: administer into each nostril (DME) Aerochamber MV Spacer See Rx Instructions .Route Qty: 10 0RF Rx Instructions: Use with inhalers pantoprazole [Protonix] 40 mg tablet,delayed release (DR/EC) 40 mg PO DAILY Qty: 30 12RF clotrimazole 1 % cream 1 applic topical BID Qty: 45 0RF Rx Instructions: Apply to affected areas twice a dayfor 2-4wks albuterol sulfate [ProAir HFA] 90 mcg/actuation HFA aerosol inhaler 2 puff inhalation Q6H PRN (Reason: shortness of breath or wheezing) Qty: 8.5 4RF Patient Comments: pt. states she needs to pick one up clindamycin phosphate 1 % lotion 1 applic topical BID Qty: 60 1RF Rx Instructions: Apply two times per day in skin areas subject to recurrent flares polyethylene glycol 3350 17 gram/dose powder 238 g PO ONCE Qty: 238 0RF Rx Instructions: take per colonoscopy instructions bisacodyl 5 mg tablet,delayed release (DR/EC) See Rx Instructions .ROUTE .COMPLEX Qty: 8 0RF Dose Instruction: take 1 tablet(5 mg) by mouth once for colonscopy bowel prep; take per colonoscopy instructions Rx Instructions: take 1 tablet(5 mg) by mouth once for colonscopy bowel prep; take per colonoscopy instructions Discharge Instructions Additional Instructions: FINDINGS: Some polyps were found and removed today. This is why we do the colonoscopies. They are nothing to worry about. Unfortunately, because of eating regular food yesterday, the prep was quite poor and it is very possible we missed other polyps inside of you. You should repeat another colonoscopy in 3 years and perform an extended prep and make sure that you do not eat at least 2 days before the procedure. Activity:: Activity as Tolerated Diet:: As Tolerated DS: Diagnosis Discharge Diagnosis (1) Colon cancer screening: Status: Acute
--- NOTE | 2024-04-25 10:07 | W.ANESPRE ---
General Info Date of Service Date Performed: 04/25/24 Height: 5 ft 1 in Weight: 136 kg Body Mass Index (BMI): 56.6 Surgical Procedure: Operation Date: 04/25/24 09:50 Proposed Procedure Side Surgeon p Colonoscopy Reilly Rizo MD Actual Procedure Side Surgeon p Colonoscopy Not Applicable Reilly Rizo MD Meds Allergies and Home Medications Allergies Allergy/AdvReac Type Severity Reaction Status Date / Time Sulfa (Sulfonamide Allergy Intermediate HIVES Verified 04/25/24 08:55 Antibiotics) indomethacin AdvReac Intermediate vomiting/di Verified 04/25/24 08:55 arrhea morphine AdvReac Mild LOCAL Verified 04/25/24 08:55 ITCHING Home Medication ?Medication ?Instructions ?Recorded ipratropium 0.5 mg-albuterol 3 mg 3 ml inhalation Q20M PRN shortness 06/24/22 (2.5 mg base)/3 mL nebulization of breath or wheezing #180 mL soln clotrimazole 1 % topical cream 1 applic topical BID #45 grams 11/30/22 albuterol sulfate 2.5 mg/3 mL 2.5 mg (3 mL) inhalation Q6H PRN 12/16/22 (0.083 %) solution for nebulization shortness of breath or wheezing #90 mL fluticasone propionate 50 2 spray intranasal DAILY PRN 12/16/22 mcg/actuation nasal allergy symptoms #16 grams spray,suspension (Flonase Allergy Relief) inhalational spacing device #10 ea 12/16/22 (Aerochamber MV spacer) diclofenac sodium 1 % topical gel 4 g topical QID #100 grams 06/29/23 (Voltaren Arthritis Pain) budesonide-formoterol HFA 160 1 inh inhalation BID #10.2 grams 12/22/23 mcg-4.5 mcg/actuation aerosol inhaler (Symbicort) montelukast 10 mg tablet 10 mg PO QHS #90 tabs 12/22/23 (Singulair) albuterol sulfate 90 mcg/actuation 2 puff inhalation Q6H PRN 01/25/24 aerosol inhaler (ProAir HFA) shortness of breath or wheezing #8.5 grams clindamycin phosphate 1 % lotion 1 applic topical BID #60 mL 01/25/24 pantoprazole 40 mg tablet,delayed 40 mg PO DAILY #30 tabs 03/22/24 release (Protonix) polyethylene glycol 3350 17 238 g PO ONCE colonoscopy prep 03/22/24 gram/dose oral powder #238 grams bisacodyl 5 mg tablet,delayed See Rx Instructions .Route 04/01/24 release .COMPLEX #8 tabs Current Visit Medications: Current Medications Generic Name Dose Route Start Last Admin Trade Name Freq PRN Reason Stop Dose Admin Ringer's Solution 1,000 mls @ 80 mls/hr 04/25/24 06:00 04/25/24 09:25 IV 04/25/24 23:59 80 mls/hr INFUSION CHRISTINA Administration IV Miscellaneous Supplies 1 each 04/25/24 06:00 Iv Access IV 04/25/24 23:59 DIRECTED CHRISTINA Sodium Chloride 0 ml 04/25/24 06:00 Normal Saline Flush 10 Ml Syr IV 04/25/24 23:59 PRN PRN Sodium Chloride 0 ml 04/25/24 06:00 Normal Saline 10 Ml Vial IJ 04/25/24 23:59 DIRECTED PRN Sterile Water 0 ml 04/25/24 06:00 Water,Injection,Sterile 10 Ml Vial IJ 04/25/24 23:59 DIRECTED PRN PFSH Active Problems Active Problems: Problem Status Onset Code Colon cancer screening Acute Z12.11 Chronic diarrhea Acute K52.9 GERD (gastroesophageal reflux disease) Chronic K21.9 SILVIA (obstructive sleep apnea) Chronic G47.33 Asthma Chronic J45.909 Hyperlipidemia Chronic E78.5 Prediabetes Chronic R73.03 Patellofemoral syndrome of right knee Chronic M22.2X1 Bilateral hearing loss Chronic H91.93 Obesity, morbid, BMI 50 or higher Chronic E66.01 Edema of both lower legs Chronic R60.0 Atopic dermatitis Chronic L20.9 Hidradenitis suppurativa Chronic L73.2 Medical History Medical History (Updated 04/25/24 @ 09:58 by Reilly Rizo MD) Herpes zoster Former cigarette smoker Premature surgical menopause Surgical History Surgical History Hx of colonoscopy Status post right partial knee replacement (08/10/22) Patellofemoral replacement H/O section 1996 and 1998 History of hernia surgery S/P right knee arthroscopy S/P appendectomy History of hysterectomy with unilateral oophorectomy (~1998) Done for bleeding issues, ?CIN3 S/P left oophorectomy (~2004) Tobacco Smoking/Tobacco Use Status: Former Tobacco Use Smokeless tobacco user: snus Passive smoking exposure: No Second hand exposure: Yes Alcohol Alcohol Intake: never Substance Use Substance use: Never Substance use type: does not use Details: vape 4 to 5 times per day Prental History History 2 Para 2 Hx # Term Pregnancies Multiple births Hx # Pregnancies Ectopic pregnancies AB induced Hx Number of Living Children AB spontaneous Past Pregnancies Del. Date GA/Weeks # Preg Succ Route Wgt Sex Labor Lgth Anesthesia Location [facility] 08/03/97 No Yes 3175.147 g Male [facility] 09/19/98 No Yes Female [facility] Delivery Date: 08/03/97 Last Updated by: Elizabeth Alvarado Delivery Date: 09/19/98 Last Updated by: Elizabeth Rodriguez Vital Signs and Lab Results Vital Signs Most Recent Vital Signs in EMR: Most Recent Vital Signs Temp Pulse Resp BP Pulse Ox 36.5 C 83 18 126/86 97 04/25/24 08:43 04/25/24 08:43 04/25/24 08:43 04/25/24 08:43 04/25/24 08:43 Lab Results Blood Type / Crossmatch: No Data to Display Complete Blood Count: No Data to Display Complete Metabolic Panel: No Data to Display Liver Function Panel: No Data to Display Coagulation Panel: No Data to Display Cardiac Panel: No Data to Display Arterial Blood Gas: No Data to Display Venous Blood Gas: No Data to Display Pancreas Panel: No Data to Display Thyroid Panel: No Data to Display Infectious Disease: No Data to Display Blood Cultures: No Data to Display Toxicology Panel: No Data to Display Panel: No Data to Display Imaging and Studies Imaging and Studies Study information below may be from another EMR and interpreted by another provider. Please see original notes in EMR for more complete details. EKG Summary: EKG PATIENT NAME: Juany Vasquez UNIT #: [id number] ORDERING PROVIDER: Nadege Metcalf PRIMARY CARE PROVIDER: TANIA FRANCO NP DATE/TIME OF SERVICE: 07/08/221818 : 1975 PERFORMING LOCATION: [place] APPROVED REPORT Exam: Resting ECG Reason for Exam: hyperkalemia Patient Location: E HR:118 bpm ECG Measurements Heart Rate 118 AXIS MN 119 P 55 QRSd 69 QRS 62 QT 313 T-2 QTc 439 Conclusion Sinus tachycardia...rate> 99. Sinus. Normal axis. No STEMI. I have reviewed and interpreted ECG and agree with software generated interpretation. <Electronically signed by DILLON ALFREDO DO in [place]> E-Sign Date: 07/08/22 E-Sign Time: 2036 ADDENDUM APPROVED REPORT Exam: Resting ECG Reason for Exam: hyperkalemia Patient Location: E HR:118 bpm ECG Measurements Heart Rate 118 AXIS MN 119 P 55 QRSd 69 QRS 62 QT 313 T-2 QTc 439 Conclusion Sinus tachycardia...rate> 99. Sinus. Normal axis. No STEMI. I have reviewed and interpreted ECG and agree with software generated interpretation. I have reviewed and I agree with the emergency room physician's ECG interpretation. Electronically signed by: <Electronically signed by Linda Guerra M.D. in [place]> 07/12/22 0815 Cosigned by: Anesthesia Assessment and Plan Anesthesia History Personal History: No History of Anesthesia Complications Family History: No Family History of Anesthesia Complications Exercise Tolerance Exercise Tolerance: Metabolic Equivalents>4 Pertinent Negatives Pertinent Negatives: No Symptoms of GERD, No Major Cardiovascular Symptoms or Complaints and No History of CVA/TIA Cardiac & Pulmonary Exam Cardiac Exam: Normal S1/S2 Heart Sounds Pulmonary Exam: Clear Bilateral Breath Sounds Implantable Cardiac Device Does patient have a Pacemaker or an ICD?: No Airway Exam Known Difficult Airway: No Mallampati Class: 2 Mouth Opening: Normal (> 3cm) Thyromental Distance: Greater than 3 cm Neck Range of Motion: Full ROM Neck Circumference: Normal Teeth Condition: Removable Dentures/Plates Upper and Removable Dentures/Plates Lower (partial left at home) ASA Classification ASA Score: ASA 3 Emergency Case?: No NPO Status NPO Status: NPO Clears >2 hours, Solids >8 hours Status Status: History of Hysterectomy Anesthesia Plan Resuscitation Status: Full Code Anesthesia Technique: General Anesthesia Airway Planned: Natural Airway Monitors Used: Standard Monitors
[2024-04-25 10:08] VITALS: BMI 56.6
--- NOTE | 2024-04-25 10:35 | BOWEL_PTH ---
PATIENT: Juany Vasquez LOC: [facility] U#:[id number] AGE/SX: 49/F ROOM: RE04/25/[address]: Reilly Rizo : 1975 BED: DIS: 04/25/2024 SPEC #: [id number] RECD: 04/25/24 13:22 STATUS: CHAPITO RE #: [id number] TINO: 04/25/24 10:[address]: Reilly Rizo DEPT: Surgical Specimen RECD BY: Nadege Abbasi ENTERED: 04/25/24 13:23 SP TYPE: Bowel OTHR DR: TATIANNA Vogel Tissues: 1 - BIOPSY BOWEL 2 - BIOPSY BOWEL Procedures: GROSS AND MICRO LEVEL 4 IMMUNOPEROXIDASE STAIN Comments: [id number]
[2024-04-25 10:44] VITALS: BP 131/71; PULSE 77; RESP 18; TEMP 36.6; O2SAT 97
--- NOTE | 2024-04-25 10:57 | W.ANESPOSTOP ---
Postoperative Evaluation Date, Time and Location Date Performed: 04/25/24 Time Performed: 10:57 Patient Location: Day Surgery Unit Vital Signs Most Recent Imported Vital Signs: Most Recent Vital Signs Temp Pulse Resp BP Pulse Ox 36.6 C 77 18 131/71 97 04/25/24 10:44 04/25/24 10:44 04/25/24 10:44 04/25/24 10:44 04/25/24 10:44 Pain Score Most Recent Pain Score: Most Recent Pain Score Pain Level 0 04/25/24 10:44 Assessment Mental Status: Arousable with meaningful communication Airway and Respiratory Function: Patent airway with normal (patient baseline) respiratory exam Cardiovascular Function: Hemodynamically Stable Hydration Status: Adequately Hydrated Nausea & Vomiting: No Nausea or Vomiting Pain: Pt. Denies Any Pain Peripheral Nerve Block: Patient did not receive a nerve block
[2024-04-25 11:08] VITALS: BP 139/78; PULSE 82; RESP 18; TEMP 36.9; O2SAT 98
== END 2024-04-25 11:20 | disposition home or self-care (01) ==
PROVIDERS: PCP Nurse Practitioner Family; Visit Provider Student in an Organized Health Care Education/Training Program
PROC: 0DJD8ZZ Inspection of Lower Intestinal Tract, Via Natural or Artificial Opening Endoscopic (ICD-10-PCS; CPT 45378; principal; 2024-04-25 09:45)
DX: Z12.11 Encounter for screening for malignant neoplasm of colon (principal); K63.5 Polyp of colon; K63.89 Other specified diseases of intestine
CPT/HCPCS: 45385; 45380; 00123; 88305; 88361; J2704

== ENCOUNTER 2024-05-01 08:29 | Emergency (ER) | payer MEDICAID, SELFPAY ==
[2024-05-01 08:31] VITALS: BP 171/84; PULSE 89; RESP 12; TEMP 36.4; O2SAT 99
[2024-05-01] MEDS: Fluorescein STRIPS 100/BOX 1 MG OP (08:39)
[2024-05-01] MEDS: Tetracaine 0.5% 4 ML BTL OP (08:39)
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
[2024-05-01] MEDS: Erythromycin Ophth Oint 3.5 GM TUBE OD (08:58)
--- NOTE | 2024-05-02 08:52 | NUR.NOTE ---
Patient called stating that her place of employment needed a return to work note. Dr. Valdez wrote a paper return to work, to return today. It has been copied and send to medical records. Nursing Note:
== END 2024-05-01 08:59 | disposition home or self-care (01) ==
PROVIDERS: Emergency Provider Nurse Practitioner Family; PCP Nurse Practitioner Family
DX: S05.01XA Injury of conjunctiva and corneal abrasion without foreign body, right eye, initial encounter (principal); X58.XXXA Exposure to other specified factors, initial encounter
CPT/HCPCS: 99283

== ENCOUNTER 2024-07-31 14:12 | Outpatient (CLI) | payer MEDICAID, SELFPAY ==
--- NOTE | 2024-07-31 14:00 | DI.RAD_ITS ---
Exam(s) XR CHEST 2V PA LATERAL EXAM: XR CHEST 2V PA LATERAL CLINICAL HISTORY: eval pna R05.9 COUGH TECHNIQUE: 2D digital imaging was performed. Two views. COMPARISON: No exams were available for comparison FINDINGS: HEART: Normal size. Aorta: Not dilated. PULMONARY VASCULATURE: Normal. MEDIASTINUM: Unremarkable. LUNGS: Clear. PLEURAL SPACE: No pleural effusion or pneumothorax. BONE:Unremarkable for age. SOFT TISSUES: Unremarkable. IMPRESSION: No acute abnormality. DATA REPOSITORY: RADIATION DOSE DELIVERED:
== END 2024-07-31 14:32 ==
PROVIDERS: PCP Nurse Practitioner Family; Visit Provider Nurse Practitioner Family
DX: R05.9 Cough, unspecified (principal)
CPT/HCPCS: 71046

== ENCOUNTER 2024-09-25 14:58 | Emergency (ER) | payer MEDICAID, SELFPAY ==
[2024-09-25 15:13] VITALS: BP 138/83; PULSE 113; RESP 22; TEMP 38.8; O2SAT 97
[2024-09-25 15:21] VITALS: BP 138/83; PULSE 112; RESP 22; TEMP 38.8; O2SAT 97
[2024-09-25 16:17] LABS: COVID-19 PCR Negative (Negative); Influenza A PCR Positive (Negative); Influenza B PCR Negative (Negative); RSV PCR Negative (Negative)
[2024-09-25 16:19] LABS: Source Nasopharynx
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
[2024-09-25 17:12] VITALS: BP 152/78; PULSE 115; RESP 19; TEMP 38.8; O2SAT 94
[2024-09-25] MEDS: Acetaminophen 500 MG TAB 1000 MG PO (17:13)
== END 2024-09-25 17:16 | disposition home or self-care (01) ==
PROVIDERS: Emergency Provider Emergency Medicine; PCP Nurse Practitioner Family
DX: J09.X2 Influenza due to identified novel influenza A virus with other respiratory manifestations (principal); R05.1 Acute cough; R50.9 Fever, unspecified
CPT/HCPCS: 87637; 99283

== ENCOUNTER 2024-12-04 02:34 | Outpatient (CLI) | payer MEDICAID, SELFPAY ==
[2024-12-04 11:48] LABS: Hemoglobin A1C 5.8 % (<5.7)
[2024-12-04 11:53] LABS: ALT 28 U/L (14-59); AST 18 U/L (15-37); Albumin 3.5 g/dL (3.4-5.0); Alkaline Phosphatase 93 U/L (46-116); BUN 15 mg/dL (7-18); Bilirubin, Total 0.3 mg/dL (0.2-1.0); CREATININE 0.9 mg/dL (0.55-1.02); Calcium 9.5 mg/dL (8.5-10.1); Chloride 105 mmol/L (98-107); Estimated GFR 79.35 (mL/min/1.73m2); Glucose 92 mg/dL (74-106); Potassium 4.1 mmol/L (3.5-5.1); Sodium 143 mmol/L (136-145); Total Protein 7.2 g/dL (6.4-8.2)
[2024-12-05 13:25] LABS: Hepatitis C Ab w Rflx HCV PCR Negative (Negative)
== END 2024-12-04 02:35 | disposition home or self-care (01) ==
LOC: LBO 02:34
PROVIDERS: PCP Nurse Practitioner Family; Visit Provider Nurse Practitioner Family
DX: Z00.00 Encounter for general adult medical examination without abnormal findings (principal)
CPT/HCPCS: 36415; 80053; 86803; 83036

== ENCOUNTER 2025-02-25 01:22 | Outpatient (CLI) | payer MEDICAID, SELFPAY ==
--- NOTE | 2025-02-25 13:24 | DI.MAMMO_ITS ---
Exam(s) MAMMO SCREENING EXAM: MAMMO SCREENING CLINICAL HISTORY: SCREENING, Z12.39 TECHNIQUE: Mammograms were interpreted according to the usual protocol including computer analysis with CAD system, tomosynthesis and C-view imaging. COMPARISON: 2020 and 2021 FINDINGS: The breasts are composed of mainly fatty density , Breast Density category A. No suspicious masses or suspicious microcalcifications are seen. No skin thickening or abnormal axillary lymph nodes are seen. There has been no significant change from prior exams. IMPRESSION: BI-RADS Category 1, Negative mammogram Yearly screening mammography is recommended. Breast Density- Category A - The breast are almost entirely fatty. Breast density Category C or D implies that the patient has dense breast tissue. Dense breast tissue can make it harder to find cancer on a mammogram. Dense breast tissue is also associated with an increased risk of breast cancer. This information about the result of the mammogram report was provided to the patient to raise their awareness. Use this report when you speak with the patient about their risks for breast cancer, which includes their family history. At that time, you may recommend additional screening tests (Ultrasound or MRI) as these tests may add significant information. A negative radiographic report should not delay biopsy if a dominant or clinically suspicious mass is present. Up to ten percent of cancers are not identified on mammography. A negative report may reinforce clinical impression. Adenosis and dense breasts may obscure an underlying neoplasm. False positive reports average 6 to 10%. Patient will receive a letter notifying them of these results.
== END 2025-02-25 01:42 ==
LOC: DI 01:22
PROVIDERS: PCP Nurse Practitioner Family; Visit Provider Nurse Practitioner Family
DX: Z12.31 Encounter for screening mammogram for malignant neoplasm of breast (principal); R92.313 Mammographic fatty tissue density, bilateral breasts
CPT/HCPCS: 77063; 77067